=== PATIENT | female | born 2000 | race Caucasian/White ===

== ENCOUNTER 2020-04-13 09:29 | Emergency (ER) | payer BC, OTHER ==
--- NOTE | 2020-04-13 09:54 | ERPHSYRPT ---
- History of Present Illness Time Seen by Provider: 04/13/20 09:40 Source: patient, family Exam Limitations: no limitations Patient Subjective Stated Complaint: pt states she walked into a wall and thinks she broke her nose, she states erich nose was bleeding, Triage Nursing Assessment: pt alert, arrived per wc , resp easy, has mask, skin w/d/p.has slight swelling to nose, she states hard to breath Physician History: This is a 19-year-old white female who states 1 to 2 hours prior to the evaluation of the emergency department, the patient turned a corner and ran into a wall. She said this was accidental. She had brief loss of consciousness per her report and there was brief immediate and significant nosebleed but this had stopped prior to her evaluation in the emergency department. Occurred: this morning, hours ago (1-2) Severity: mild Head Injury Location: frontal Method of Injury: direct blow (Ran into a wall accidentally per patient report) Loss of Consciousness: brief (seconds) Associated Symptoms: other (Brief but significant nosebleed) Allergies/Adverse Reactions: No Known Drug Allergies Allergy (Unverified 04/13/20 09:42) Home Medications: No Reportable Medications [No Reported Medications] 04/13/20 [History] Hx Influenza Vaccination/Date Given: No Hx Pneumococcal Vaccination/Date Given: No Immunizations Up to Date: Yes Travel Risk - International Travel Have you traveled outside of the country in past 3 weeks: No - Coronavirus Screening Are you exhibiting any of the following symptoms?: No Close contact with a COVID-19 positive Pt in past 14-21 Days: No - Review of Systems Constitutional: No Symptoms Eyes: No Symptoms Ears, Nose, & Throat: No Symptoms Respiratory: No Symptoms Cardiac: No Symptoms Abdominal/Gastrointestinal: No Symptoms Genitourinary Symptoms: No Symptoms Musculoskeletal: No Symptoms Skin: No Symptoms Neurological: No Symptoms Psychological: No Symptoms Endocrine: No Symptoms Hematologic/Lymphatic: No Symptoms Immunological/Allergic: No Symptoms All Other Systems: Reviewed and Negative - Past Medical History Pertinent Past Medical History: No Neurological History: No Pertinent History ENT History: No Pertinent History Cardiac History: No Pertinent History Respiratory History: No Pertinent History Endocrine Medical History: No Pertinent History Musculoskeletal History: No Pertinent History GI Medical History: No Pertinent History History: No Pertinent History Psycho-Social History: No Pertinent History Female Reproductive Disorders: No Pertinent History - Past Surgical History Past Surgical History: No Neuro Surgical History: No Pertinent History Cardiac: No Pertinent History Respiratory: No Pertinent History Gastrointestinal: No Pertinent History Genitourinary: No Pertinent History Musculoskeletal: No Pertinent History Female Surgical History: No Pertinent History - Social History Smoking Status: Current every day smoker Exposure to second hand smoke: Yes Drug Use: none Patient Lives Alone: Yes - Female History Hx Last Menstrual Period: yesterday Hx Now: No - Nursing Vital Signs Nursing Vital Signs: Initial Vital Signs Temperature 98.0 F 04/13/20 09:34 Pulse Rate 102 H 04/13/20 09:34 Respiratory Rate 18 04/13/20 09:34 Blood Pressure 115/72 04/13/20 09:34 O2 Sat by Pulse Oximetry 100 04/13/20 09:34 Pain Scale Pain Intensity 5 - [place] Coma Score Best Eye Response ([place]): (4) open spontaneously Best Verbal Response ([place]): (5) oriented Best Motor Response ([place]): (6) obeys commands [place] Total: 15 - Physical Exam General Appearance: no apparent distress, alert, anxiety Head Injury: ecchymosis (Mild with mild swelling nasal bridge), swelling (Mild nasal bridge) Eye Exam: bilateral eye: normal inspection, PERRL, EOMI ENT Exam: airway nml, other (Mild nasal bridge swelling and ecchymosis. No epistaxis. No intranasal blood clots present) Neck Exam: supple, trachea midline, full range of motion, normal alignment, normal inspection Cardiovascular/Respiratory Exam: chest non-tender Gastrointestinal/Abdominal Exam: non tender Pelvic Exam: not done Rectal Exam: not done Back Exam: normal inspection, normal range of motion, No CVA tenderness, No vertebral tenderness Extremity Exam: non-tender, normal range of motion, normal inspection Mental Status Exam: alert, oriented x 3, cooperative night shift Exam: normal hearing, normal speech, PERRL Coordination/Gait Exam: normal finger to nose, normal gait, normal cerebellar function Motor/Sensory Exam: no motor deficit, no sensory deficit Skin Exam: normal color, warm, dry Lymphatic Exam: No adenopathy SpO2 Interpretation: normal SpO2: 100 O2 Delivery: Room Air - Course Nursing assessment & vital signs reviewed: Yes Ordered Tests: Active Orders 24 hr Category Date Time Status FACIAL BONES WO CONTRAST [CT] Stat Exams 04/13/20 09:57 Completed HEAD WITHOUT CONTRAST [CT] Stat Exams 04/13/20 09:57 Completed - Progress Progress: pain not gone completely, re-examined Progress Note: 04/13/20 11:03 CAT scan of the head shows no acute intracranial abnormalities CAT scan of the facial bones shows a nondisplaced nasal bone fracture. - Departure Departure Disposition: Home Clinical Impression: Nasal bone fracture Condition: Stable Critical Care Time: No Referrals: YRN WHITTAKER MD [NON-STAFF PHY W/O PRIVILEGES] - Additional Instructions: Ice pack to area 3 times a day for the next 48 hours. Use Tylenol ibuprofen for pain. Follow-up with your primary care physician on an as-needed basis.
--- NOTE | 2020-04-13 10:43 | XRAY ---
Indication: Epistaxis following head injury. Multiple contiguous axial images obtained through the head without contrast. Comparison: None Normal appearing brain parenchyma, ventricles, and bony calvarium. Visualized paranasal sinuses and mastoid air cells are clear. Impression: Normal CT head without contrast exam.
--- NOTE | 2020-04-13 10:45 | XRAY ---
Indication: Epistaxis following head injury. Multiple contiguous axial images obtained through the facial bones. Sagittal and coronal reformatted images obtained. Comparison: None Tiny nondisplaced left nasal bone fracture. No other acute fracture, suspicious bony lesions, or radiopaque foreign body. Orbits including roof, juares, and floors intact. Paranasal sinuses and nasal passages are clear. Minimal nasal septal deviation. Visualized noncontrasted soft tissues unremarkable. CT head reported separately. Impression: Nondisplaced left nasal bone fracture.
[2020-04-13 11:13] VITALS: BP 107/70; PULSE 104; O2SAT 96
== END 2020-04-13 11:14 | disposition home or self-care (01) ==
LOC: ED 09:29
DX: S02.2XXA Fracture of nasal bones, initial encounter for closed fracture (principal); W22.01XA Walked into wall, initial encounter
CPT/HCPCS: 70450; 70486; 99283

== ENCOUNTER 2020-09-18 23:25 | Emergency (ER) | payer OTHER ==
[2020-09-18] MEDS ORDERED: Sodium Chloride 0.9% 1000 ML 1,000 ML IV STA (23:45)
--- NOTE | 2020-09-18 23:53 | ERPHSYRPT ---
- History of Present Illness Time Seen by Provider: 09/18/20 23:37 Source: patient Exam Limitations: no limitations Physician History: 20 years old 1 para 0 at almost 4-6 weeks gestation per LMP presented in the ER with 4 days history of intermittent pelvic pressure/tightness/cramping with radiation to bilateral lower quadrants Keysha to severe intensity without any significant aggravating or relieving factors. Patient also reports she had a light spotting before she started to have this pain. Denies any urinary symptoms. No associated nausea or vomiting. Patient has a test confirmed that primary care office. Timing/Duration: day(s) (4), intermittent, gradual onset, worse Activites at Onset: rest Quality: sharpness Onset Location: suprapubic, pelvic pain Pain Radiation: RLQ, LLQ Severity of Pain-Max: severe Severity of Pain-Current: moderate Prior abdominal problems: none Modifying Factors: Improves With: nothing Associated Symptoms: denies symptoms Allergies/Adverse Reactions: No Known Drug Allergies Allergy (Unverified 09/19/20 00:04) Home Medications: No Reportable Medications [No Reported Medications] 04/13/20 [History] Hx Influenza Vaccination/Date Given: No Hx Pneumococcal Vaccination/Date Given: No - Review of Systems Constitutional: No Symptoms Eyes: No Symptoms Ears, Nose, & Throat: No Symptoms Respiratory: No Symptoms Cardiac: No Symptoms Abdominal/Gastrointestinal: Abdominal Pain Genitourinary Symptoms: , Vaginal Bleeding Musculoskeletal: No Symptoms Skin: No Symptoms Neurological: No Symptoms Psychological: No Symptoms Endocrine: No Symptoms Hematologic/Lymphatic: No Symptoms Immunological/Allergic: No Symptoms - Past Medical History Pertinent Past Medical History: No Neurological History: No Pertinent History ENT History: No Pertinent History Cardiac History: No Pertinent History Respiratory History: No Pertinent History Endocrine Medical History: No Pertinent History Musculoskeletal History: No Pertinent History GI Medical History: No Pertinent History History: No Pertinent History Psycho-Social History: No Pertinent History Female Reproductive Disorders: No Pertinent History - Past Surgical History Past Surgical History: No Neuro Surgical History: No Pertinent History Cardiac: No Pertinent History Respiratory: No Pertinent History Gastrointestinal: No Pertinent History Genitourinary: No Pertinent History Musculoskeletal: No Pertinent History Female Surgical History: No Pertinent History - Social History Smoking Status: Current every day smoker Exposure to second hand smoke: Yes Drug Use: none Patient Lives Alone: Yes - Nursing Vital Signs Nursing Vital Signs: Initial Vital Signs Temperature 99.2 F 09/18/20 23:43 Pulse Rate 71 09/18/20 23:43 Respiratory Rate 20 09/18/20 23:43 Blood Pressure 118/75 09/18/20 23:43 O2 Sat by Pulse Oximetry 100 09/18/20 23:43 Pain Scale Pain Intensity 3 - Physical Exam General Appearance: no apparent distress Eye Exam: PERRL/EOMI Ears, Nose, Throat Exam: normal ENT inspection Neck Exam: normal inspection, non-tender, supple, full range of motion Respiratory Exam: normal breath sounds, lungs clear Cardiovascular Exam: regular rate/rhythm, normal heart sounds Gastrointestinal/Abdomen Exam: soft, normal bowel sounds, tenderness (Supra pubic), No guarding Back Exam: normal inspection, normal range of motion, No CVA tenderness Extremity Exam: normal inspection, normal range of motion, pelvis stable Neurologic Exam: alert, oriented x 3, cooperative Skin Exam: normal color SpO2 Interpretation: normal O2 Delivery: Room Air - Radiology Ultrasound Exam OB Ultrasound: Other (Marcell report showed IUP eason with no ectopic.) Ordered Tests: Medication Summary Discontinued Medications Generic Name Dose Route Start Last Admin Trade Name Freq PRN Reason Stop Dose Admin Sodium Chloride 1,000 mls @ 999 mls/hr 09/18/20 23:45 09/19/20 00:07 Sodium Chloride 0.9% 1000 Ml IV 09/19/20 00:45 999 mls/hr .Q1H1M STA Administration Sodium Chloride Confirm 09/19/20 00:07 Sodium Chloride 0.9% 1000 Ml Administered 09/19/20 00:08 Dose 1,000 mls @ ud .[facility]TE .[facility] Lab/Rad Data: Laboratory Result Diagrams 09/18/20 00:04 09/18/20 00:04 Laboratory Results 09/19/20 09/19/20 09/18/20 Range/Units 00:04 00:04 00:15 WBC (4.0-10.5) K/mm3 RBC (4.1-5.4) M/mm3 Hgb (12.0-16.0) gm/dl Hct (35-47) % MCV (78-100) fl MCH (26-32) pg MCHC (32-36) g/dl RDW (11.5-14.0) % Plt Count (150-450) K/mm3 MPV (7.5-11.0) fl Gran % (36.0-66.0) % Eos # (Auto) (0-0.5) Absolute Lymphs (auto) (1.0-4.6) Absolute Monos (auto) (0.0-1.3) Lymphocytes % (24.0-44.0) % Monocytes % (0.0-12.0) % Eosinophils % (0.00-5.0) % Basophils % (0.0-0.4) % Absolute Granulocytes (1.4-6.9) Basophils # (0-0.4) Sodium (137-145) mmol/L Potassium (3.5-5.1) mmol/L Chloride (98-107) mmol/L Carbon Dioxide (22-30) mmol/L Anion Gap (5-15) MEQ/L BUN (7-17) mg/dL Creatinine (0.52-1.04) mg/dL Estimated GFR ML/MIN Glucose (74-106) mg/dL Calcium (8.4-10.2) mg/dL Total Bilirubin (0.2-1.3) mg/dL AST (14-36) U/L ALT (0-35) U/L Alkaline Phosphatase (38-126) U/L Serum Total Protein (6.3-8.2) g/dL Albumin (3.5-5.0) g/dL Beta HCG, Quant mIU/ml Urine Color YELLOW (YELLOW) Urine Appearance CLOUDY (CLEAR) Urine pH 7.0 (5-6) Ur Specific [place] 1.017 (1.005-1.025) Urine Protein NEGATIVE (Negative) Urine Ketones NEGATIVE (NEGATIVE) Urine Blood NEGATIVE (0-5) Ke/ul Urine Nitrite NEGATIVE (NEGATIVE) Urine Bilirubin NEGATIVE (NEGATIVE) Urine Urobilinogen NEGATIVE (0-1) mg/dL Ur Leukocyte Esterase NEGATIVE (NEGATIVE) Urine WBC (Auto) NONE (0-5) /HPF Urine RBC (Auto) NONE (0-2) /HPF U Epithel Cells (Auto) FEW (FEW) /HPF Urine Bacteria (Auto) NONE (NEGATIVE) /HPF Amorphous Crystals FEW (NEGATIVE) /HPF Urine Mucus (Auto) SLIGHT (NEGATIVE) /HPF Urine Culture Reflexed NO (NO) Urine Glucose NEGATIVE (NEGATIVE) mg/dL Urine HCG, Qual POSITIVE (Negative) ABO Group A Rh Factor POSITIVE Antibody Screen NEGATIVE (NEGATIVE) 09/18/20 09/18/20 Range/Units 00:04 00:04 WBC 8.0 (4.0-10.5) K/mm3 RBC 3.89 L (4.1-5.4) M/mm3 Hgb 12.3 (12.0-16.0) gm/dl Hct 37.1 (35-47) % MCV 95.4 (78-100) fl MCH 31.6 (26-32) pg MCHC 33.2 (32-36) g/dl RDW 12.3 (11.5-14.0) % Plt Count 229 (150-450) K/mm3 MPV 10.2 (7.5-11.0) fl Gran % 68.2 H (36.0-66.0) % Eos # (Auto) 0.11 (0-0.5) Absolute Lymphs (auto) 1.78 (1.0-4.6) Absolute Monos (auto) 0.62 (0.0-1.3) Lymphocytes % 22.3 L (24.0-44.0) % Monocytes % 7.8 (0.0-12.0) % Eosinophils % 1.4 (0.00-5.0) % Basophils % 0.3 (0.0-0.4) % Absolute Granulocytes 5.47 (1.4-6.9) Basophils # 0.02 (0-0.4) Sodium 138 (137-145) mmol/L Potassium 3.7 (3.5-5.1) mmol/L Chloride 105 (98-107) mmol/L Carbon Dioxide 26 (22-30) mmol/L Anion Gap 9.8 (5-15) MEQ/L BUN 13 (7-17) mg/dL Creatinine 0.55 (0.52-1.04) mg/dL Estimated GFR > 60.0 ML/MIN Glucose 86 (74-106) mg/dL Calcium 9.4 (8.4-10.2) mg/dL Total Bilirubin 0.20 (0.2-1.3) mg/dL AST 22 (14-36) U/L ALT 15 (0-35) U/L Alkaline Phosphatase 38 (38-126) U/L Serum Total Protein 7.4 (6.3-8.2) g/dL Albumin 4.4 (3.5-5.0) g/dL Beta HCG, Quant 38134 mIU/ml Urine Color (YELLOW) Urine Appearance (CLEAR) Urine pH (5-6) Ur Specific [place] (1.005-1.025) Urine Protein (Negative) Urine Ketones (NEGATIVE) Urine Blood (0-5) Ke/ul Urine Nitrite (NEGATIVE) Urine Bilirubin (NEGATIVE) Urine Urobilinogen (0-1) mg/dL Ur Leukocyte Esterase (NEGATIVE) Urine WBC (Auto) (0-5) /HPF Urine RBC (Auto) (0-2) /HPF U Epithel Cells (Auto) (FEW) /HPF Urine Bacteria (Auto) (NEGATIVE) /HPF Amorphous Crystals (NEGATIVE) /HPF Urine Mucus (Auto) (NEGATIVE) /HPF Urine Culture Reflexed (NO) Urine Glucose (NEGATIVE) mg/dL Urine HCG, Qual (Negative) ABO Group Rh Factor Antibody Screen (NEGATIVE) - Progress Progress: improved Air Movement: good Progress Note: She is given fluid bolus. Offered pain medication which she refused. Baseline work-up is grossly negative. I have obtained ultrasound which showed single IUP but too early in the but ruled out ectopic. I have also obtained ultrasound right lower quadrant which could not visualized appendix. She does not have any guarding or rebound tenderness. More pain in the suprapubic area. I believe patient has early related cramping. Her white count is normal and pain is been going on for the last 4 days which I resume that is related and less likely acute appendicitis. Patient is advised to follow-up with her OB for serial monitoring of beta-hCG. Do not think she needs any further work-up in the ER. Discussed signs symptoms of worsening needing return to ER which patient seems understanding. Blood Culture(s) Obtained: No Antibiotics given: No Counseled pt/family regarding: lab results, diagnosis, need for follow-up, rad results - Departure Departure Disposition: Home Clinical Impression: Pelvic pain affecting in first trimester, antepartum Condition: Stable Critical Care Time: No Referrals: LAURENCE OLIVARES MD [Primary Care Provider] - LEANDRO REN DO [ACTIVE STAFF] - (Call tomorrow for reevaluation.) Instructions: Bleeding With (DC) Additional Instructions: Drink plenty of fluids. Pelvic rest. Continue with vitamins. Follow- up with OB for reevaluation. Return to ER for worsening pain, vaginal bleeding/discharge.
[2020-09-19] MEDS ORDERED: Sodium Chloride 0.9% 1000 ML 1,000 ML ONE (00:07)
[2020-09-19 00:41] LABS: Absolute Neutrophil Ct (ANC) 5.47 (1.4-6.9); BASOPHIL % 0.3 % (0.0-0.4); Basophil (Absolute #) 0.02 (0-0.4); Eosinophil % 1.4 % (0.00-5.0); Eosinophil (Absolute #) 0.11 (0-0.5); Hematocrit 37.1 % (35-47); Hemoglobin 12.3 gm/dl (12.0-16.0); Lymphocyte (Absolute #) 1.78 (1.0-4.6); Lymphocytes % 22.3 % (24.0-44.0); Mean Cell Volume 95.4 fl (78-100); Mean Corpuscular Hemoglobin 31.6 pg (26-32); Mean Corpuscular Hgb Concent. 33.2 g/dl (32-36); Mean Platelet Volume 10.2 fl (7.5-11.0); Monocyte (Absolute #) 0.62 (0.0-1.3); Monocytes % 7.8 % (0.0-12.0); Neutrophil % 68.2 % (36.0-66.0); Platelet Count 229 K/mm3 (150-450); Red Blood Count 3.89 M/mm3 (4.1-5.4); Red Cell Distribution Width 12.3 % (11.5-14.0)
[2020-09-19 01:06] LABS: ALBUMIN 4.4 g/dL (3.5-5.0); ALKALINE PHOSPHATASE 38 U/L (38-126); ANION GAP 9.8 MEQ/L (5-15); BLOOD UREA NITROGEN 13 mg/dL (7-17); CHLORIDE 105 mmol/L (98-107); Calcium 9.4 mg/dL (8.4-10.2); Carbon Dioxide 26 mmol/L (22-30); Creatinine 1 0.55 mg/dL (0.52-1.04); EST GLOMERULAR FILTRATION RATE > 60.0 ML/MIN; Glucose 86 mg/dL (74-106); Potassium 3.7 mmol/L (3.5-5.1); SGOT/AST 22 U/L (14-36); SGPT/ALT 15 U/L (0-35); SODIUM 138 mmol/L (137-145); Total Protein 7.4 g/dL (6.3-8.2)
[2020-09-19 01:19] LABS: Amourphous Crystal FEW /HPF (NEGATIVE); Appearance CLOUDY (CLEAR); Bilirubin NEGATIVE (NEGATIVE); Blood NEGATIVE Ery/ul (0-5); Epithelial Cells FEW /HPF (FEW); Glucose NEGATIVE (NEGATIVE); Ketones NEGATIVE (NEGATIVE); Leukocyte Esterase NEGATIVE (NEGATIVE); Mucus SLIGHT /HPF (NEGATIVE); Nitrite NEGATIVE (NEGATIVE); Protein,Urine Dip NEGATIVE (Negative); Specific Gravity 1.017 (1.005-1.025); Urobilinogen NEGATIVE mg/dL (0-1)
[2020-09-19 01:30] LABS: HCG, Quantitative (Inhouse) 16357 mIU/ml
[2020-09-19 01:50] VITALS: BP 103/55; PULSE 103; O2SAT 96
[2020-09-19 02:32] LABS: ABO TYPING A; Antibody Screen NEGATIVE (NEGATIVE); RH TYPING POSITIVE
--- NOTE | 2020-09-19 08:37 | XRAY ---
Indication: Right lower quadrant pain. Two-dimensional targeted ultrasound of the right lower quadrant performed. Comparison: None Appendix not visualized. No suspicious solid/cystic mass or free fluid. Comment: Preliminary report was given.
--- NOTE | 2020-09-19 08:42 | XRAY ---
Indication: Right lower quadrant pain. Two-dimensional transabdominal early OB ultrasound performed. Comparison: None There is a single intrauterine gestational sac with mean sac diameter 1.40 cm corresponding to 5 weeks 4 days. Single yolk sac but no pole/heart tones. Left ovary demonstrates a 3 cm corpus luteal cyst. Right ovary sonographically unremarkable. Impression: Single intrauterine gestational sac measuring 5 weeks 4 days. No pole/heart tones presumed early . Correlate with serial beta hCG and follow-up sonogram regarding viability. Comment: Preliminary report was given.
== END 2020-09-19 01:50 | disposition home or self-care (01) ==
LOC: ED 23:25
DX: R10.2 Pelvic and perineal pain (principal); Z34.91 Encounter for supervision of normal pregnancy, unspecified, first trimester; N93.9 Abnormal uterine and vaginal bleeding, unspecified
CPT/HCPCS: 36000; 36415; 76705; 76801; 80053; 81001; 84702; 84703; 85025; 86850; 86900; 86901; 96360; 99284

== ENCOUNTER 2021-10-12 15:58 | Emergency (ER) | payer OTHER ==
--- NOTE | 2021-10-12 16:07 | ERPHSYRPT ---
- History of Present Illness Time Seen by Provider: 10/12/21 16:07 Source: patient Exam Limitations: no limitations Physician History: This is a 21-year-old white female who is under a lot of stress at this time, presents with concern of high blood pressure and shakiness. Patient intermittently takes Lexapro for her anxiety issues. However it makes her feel funny and so she does not take it as she should. Patient states she has a lot of stress at home with her child and and lack of funds for bills. She currently denies chest pain. She has no shortness of breath. She has no nausea vomiting or diarrhea. She did have brief visual changes during the peak of her anxiety episode earlier today. That has since resolved. Patient has an appointment to see [facility] therapist as an outpatient basis tomorrow. She is not suicidal she is not homicidal. Severity: moderate Associated Symptoms: denies symptoms Allergies/Adverse Reactions: No Known Drug Allergies Allergy (Verified 10/12/21 16:37) Home Medications: Escitalopram Oxalate 10 mg [Lexapro 10 MG] 1 ea DAILY 10/12/21 [History] Hx Tetanus, Diphtheria Vaccination/Date Given: Yes Hx Influenza Vaccination/Date Given: No Hx Pneumococcal Vaccination/Date Given: No Travel Risk - International Travel Have you traveled outside of the country in past 3 weeks: No - Coronavirus Screening Are you exhibiting any of the following symptoms?: No Close contact with a COVID-19 positive Pt in past 14-21 Days: No - Review of Systems Constitutional: No Symptoms Eyes: No Symptoms Ears, Nose, & Throat: No Symptoms Respiratory: No Symptoms Cardiac: No Symptoms Abdominal/Gastrointestinal: No Symptoms Genitourinary Symptoms: No Symptoms Musculoskeletal: No Symptoms Skin: No Symptoms Psychological: Anxiety Endocrine: No Symptoms Hematologic/Lymphatic: No Symptoms Immunological/Allergic: No Symptoms All Other Systems: Reviewed and Negative - Past Medical History Pertinent Past Medical History: No Neurological History: No Pertinent History ENT History: No Pertinent History Cardiac History: No Pertinent History Respiratory History: No Pertinent History Endocrine Medical History: No Pertinent History Musculoskeletal History: No Pertinent History GI Medical History: No Pertinent History History: No Pertinent History Psycho-Social History: No Pertinent History Female Reproductive Disorders: No Pertinent History - Past Surgical History Past Surgical History: No Neuro Surgical History: No Pertinent History Cardiac: No Pertinent History Respiratory: No Pertinent History Gastrointestinal: No Pertinent History Genitourinary: No Pertinent History Musculoskeletal: No Pertinent History Female Surgical History: No Pertinent History - Social History Smoking Status: Current every day smoker Exposure to second hand smoke: Yes Drug Use: none Patient Lives Alone: Yes - Nursing Vital Signs Nursing Vital Signs: Initial Vital Signs Temperature 97.2 F 10/12/21 16:27 Pulse Rate 86 10/12/21 16:27 Respiratory Rate 18 10/12/21 16:27 Blood Pressure 134/87 10/12/21 16:27 O2 Sat by Pulse Oximetry 100 10/12/21 16:27 Pain Scale Pain Intensity 0 - Physical Exam General Appearance: no apparent distress, alert, anxiety Eye Exam: PERRL/EOMI, eyes nml inspection Ears, Nose, Throat Exam: normal ENT inspection, TM abnormal (L) Neck Exam: normal inspection, non-tender, supple, full range of motion Respiratory Exam: normal breath sounds, lungs clear, airway intact, No chest tenderness, No respiratory distress Cardiovascular Exam: regular rate/rhythm, normal heart sounds, normal peripheral pulses Gastrointestinal/Abdomen Exam: soft, normal bowel sounds, No tenderness Ordered Tests: Active Orders 24 hr Category Date Time Status EKG-ER Only STAT Care 10/12/21 17:04 Active CBC W DIFF Stat Lab 10/12/21 17:20 Completed CMP Stat Lab 10/12/21 17:20 Completed HCG,QUALITATIVE URINE Stat Lab 10/12/21 17:00 Completed HCG,QUALITATIVE URINE Stat Lab 10/12/21 17:22 Completed UA W/RFX UR CULTURE Stat Lab 10/12/21 17:00 Completed Urine Triage Profile Stat Lab 10/12/21 17:00 Completed Lab/Rad Data: Laboratory Result Diagrams 10/12/21 17:20 10/12/21 17:20 Laboratory Results 10/12/21 10/12/21 10/12/21 Range/Units 17:22 17:20 17:20 WBC 5.6 (4.0-10.5) K/mm3 RBC 4.02 L (4.1-5.4) M/mm3 Hgb 11.7 L (12.0-16.0) gm/dl Hct 36.7 (35-47) % MCV 91.3 (78-100) fl MCH 29.1 (26-32) pg MCHC 31.9 L (32-36) g/dl RDW 12.8 (11.5-14.0) % Plt Count 235 (150-450) K/mm3 MPV 10.5 (7.5-11.0) fl Gran % 65.7 (36.0-66.0) % Eos # (Auto) 0.04 (0-0.5) Absolute Lymphs (auto) 1.46 (1.0-4.6) Absolute Monos (auto) 0.40 (0.0-1.3) Lymphocytes % 26.2 (24.0-44.0) % Monocytes % 7.2 (0.0-12.0) % Eosinophils % 0.7 (0.00-5.0) % Basophils % 0.2 (0.0-0.4) % Absolute Granulocytes 3.67 (1.4-6.9) Basophils # 0.01 (0-0.4) Sodium 137 (137-145) mmol/L Potassium 3.8 (3.5-5.1) mmol/L Chloride 104 (98-107) mmol/L Carbon Dioxide 26 (22-30) mmol/L Anion Gap 11.3 (5-15) MEQ/L BUN 12 (7-17) mg/dL Creatinine 0.57 (0.52-1.04) mg/dL Estimated GFR > 60.0 ML/MIN Glucose 91 (74-106) mg/dL Calcium 9.1 (8.4-10.2) mg/dL Total Bilirubin 0.40 (0.2-1.3) mg/dL AST 24 (14-36) U/L ALT 15 (0-35) U/L Alkaline Phosphatase 47 (38-126) U/L Serum Total Protein 7.1 (6.3-8.2) g/dL Albumin 4.4 (3.5-5.0) g/dL Urine Color (YELLOW) Urine Appearance (CLEAR) Urine pH (5-6) Ur Specific [place] (1.005-1.025) Urine Protein (Negative) Urine Ketones (NEGATIVE) Urine Blood (0-5) Ke/ul Urine Nitrite (NEGATIVE) Urine Bilirubin (NEGATIVE) Urine Urobilinogen (0-1) mg/dL Ur Leukocyte Esterase (NEGATIVE) Urine WBC (Auto) (0-5) /HPF Urine RBC (Auto) (0-2) /HPF U Epithel Cells (Auto) (FEW) /HPF Urine Bacteria (Auto) (NEGATIVE) /HPF Urine Mucus (Auto) (NEGATIVE) /HPF Urine Culture Reflexed (NO) Urine Glucose (NEGATIVE) mg/dL Urine HCG, Qual NEGATIVE (Negative) Urine Opiates Level (NEGATIVE) Ur Methadone (NEGATIVE) Urine Barbiturates (NEGATIVE) Ur Phencyclidine (PCP) (NEGATIVE) Urine Amphetamine (NEGATIVE) U Benzodiazepine Level (NEGATIVE) Urine Cocaine (NEGATIVE) Urine Marijuana (THC) (NEGATIVE) 10/12/21 10/12/21 10/12/21 Range/Units 17:00 17:00 17:00 WBC (4.0-10.5) K/mm3 RBC (4.1-5.4) M/mm3 Hgb (12.0-16.0) gm/dl Hct (35-47) % MCV (78-100) fl MCH (26-32) pg MCHC (32-36) g/dl RDW (11.5-14.0) % Plt Count (150-450) K/mm3 MPV (7.5-11.0) fl Gran % (36.0-66.0) % Eos # (Auto) (0-0.5) Absolute Lymphs (auto) (1.0-4.6) Absolute Monos (auto) (0.0-1.3) Lymphocytes % (24.0-44.0) % Monocytes % (0.0-12.0) % Eosinophils % (0.00-5.0) % Basophils % (0.0-0.4) % Absolute Granulocytes (1.4-6.9) Basophils # (0-0.4) Sodium (137-145) mmol/L Potassium (3.5-5.1) mmol/L Chloride (98-107) mmol/L Carbon Dioxide (22-30) mmol/L Anion Gap (5-15) MEQ/L BUN (7-17) mg/dL Creatinine (0.52-1.04) mg/dL Estimated GFR ML/MIN Glucose (74-106) mg/dL Calcium (8.4-10.2) mg/dL Total Bilirubin (0.2-1.3) mg/dL AST (14-36) U/L ALT (0-35) U/L Alkaline Phosphatase (38-126) U/L Serum Total Protein (6.3-8.2) g/dL Albumin (3.5-5.0) g/dL Urine Color STRAW (YELLOW) Urine Appearance SLIGHTLY CLOUDY (CLEAR) Urine pH 7.0 (5-6) Ur Specific [place] 1.006 (1.005-1.025) Urine Protein NEGATIVE (Negative) Urine Ketones NEGATIVE (NEGATIVE) Urine Blood NEGATIVE (0-5) Ke/ul Urine Nitrite NEGATIVE (NEGATIVE) Urine Bilirubin NEGATIVE (NEGATIVE) Urine Urobilinogen NEGATIVE (0-1) mg/dL Ur Leukocyte Esterase NEGATIVE (NEGATIVE) Urine WBC (Auto) NONE (0-5) /HPF Urine RBC (Auto) NONE (0-2) /HPF U Epithel Cells (Auto) RARE (FEW) /HPF Urine Bacteria (Auto) NONE (NEGATIVE) /HPF Urine Mucus (Auto) SLIGHT (NEGATIVE) /HPF Urine Culture Reflexed NO (NO) Urine Glucose NEGATIVE (NEGATIVE) mg/dL Urine HCG, Qual NEGATIVE (Negative) Urine Opiates Level NEGATIVE (NEGATIVE) Ur Methadone NEGATIVE (NEGATIVE) Urine Barbiturates NEGATIVE (NEGATIVE) Ur Phencyclidine (PCP) NEGATIVE (NEGATIVE) Urine Amphetamine NEGATIVE (NEGATIVE) U Benzodiazepine Level NEGATIVE (NEGATIVE) Urine Cocaine NEGATIVE (NEGATIVE) Urine Marijuana (THC) NEGATIVE (NEGATIVE) - Progress Progress: unchanged Progress Note: 10/12/21 18:16 Patient states that she has to leave and does not want to stay to get the results of her laboratory work-up. Patient is leaving AMA. She is aware that I could not give her a diagnosis. She states that she is leaving because she has a 5-month-old at home and there are stressors that she needs to deal with at home and has to leave now. She will sign an AMA form. Patient signed AMA form but left without her discharge paperwork. 10/12/21 18:18 - Departure Departure Disposition: AMA Clinical Impression: Anxiety, Stress Condition: Stable Critical Care Time: No Referrals: ELLIE PICKETT NP [Primary Care Provider] - Follow up/PCP as directed
[2021-10-12 16:28] VITALS: BP 134/87; PULSE 86; O2SAT 100
[2021-10-12 17:19] LABS: Appearance SLIGHTLY CLOUDY (CLEAR); Bilirubin NEGATIVE (NEGATIVE); Blood NEGATIVE Ery/ul (0-5); Epithelial Cells RARE /HPF (FEW); Glucose NEGATIVE (NEGATIVE); Ketones NEGATIVE (NEGATIVE); Leukocyte Esterase NEGATIVE (NEGATIVE); Mucus SLIGHT /HPF (NEGATIVE); Nitrite NEGATIVE (NEGATIVE); Protein,Urine Dip NEGATIVE (Negative); Specific Gravity 1.006 (1.005-1.025); Urobilinogen NEGATIVE mg/dL (0-1)
[2021-10-12 17:41] LABS: Absolute Neutrophil Ct (ANC) 3.67 (1.4-6.9); BASOPHIL % 0.2 % (0.0-0.4); Basophil (Absolute #) 0.01 (0-0.4); Eosinophil % 0.7 % (0.00-5.0); Eosinophil (Absolute #) 0.04 (0-0.5); Hematocrit 36.7 % (35-47); Hemoglobin 11.7 gm/dl (12.0-16.0); Lymphocyte (Absolute #) 1.46 (1.0-4.6); Lymphocytes % 26.2 % (24.0-44.0); Mean Cell Volume 91.3 fl (78-100); Mean Corpuscular Hemoglobin 29.1 pg (26-32); Mean Corpuscular Hgb Concent. 31.9 g/dl (32-36); Mean Platelet Volume 10.5 fl (7.5-11.0); Monocytes % 7.2 % (0.0-12.0); Neutrophil % 65.7 % (36.0-66.0); Platelet Count 235 K/mm3 (150-450); Red Blood Count 4.02 M/mm3 (4.1-5.4); Red Cell Distribution Width 12.8 % (11.5-14.0); White Blood Count 5.6 K/mm3 (4.0-10.5)
[2021-10-12 17:54] LABS: ALBUMIN 4.4 g/dL (3.5-5.0); ALKALINE PHOSPHATASE 47 U/L (38-126); ANION GAP 11.3 MEQ/L (5-15); BLOOD UREA NITROGEN 12 mg/dL (7-17); CHLORIDE 104 mmol/L (98-107); Calcium 9.1 mg/dL (8.4-10.2); Carbon Dioxide 26 mmol/L (22-30); Creatinine 1 0.57 mg/dL (0.52-1.04); EST GLOMERULAR FILTRATION RATE > 60.0 ML/MIN; Glucose 91 mg/dL (74-106); Potassium 3.8 mmol/L (3.5-5.1); SGOT/AST 24 U/L (14-36); SGPT/ALT 15 U/L (0-35); SODIUM 137 mmol/L (137-145); Total Protein 7.1 g/dL (6.3-8.2)
[2021-10-12 18:05] LABS: Amphetamine,Urine NEGATIVE (NEGATIVE); Barbiturate,Urine NEGATIVE (NEGATIVE); Benzodiazepine,Urine NEGATIVE (NEGATIVE); Cocaine,Urine NEGATIVE (NEGATIVE); Methadone,Urine NEGATIVE (NEGATIVE); Opiate,Urine NEGATIVE (NEGATIVE); PCP,Urine NEGATIVE (NEGATIVE); THC,Urine NEGATIVE (NEGATIVE)
== END 2021-10-12 18:21 | disposition left against medical advice (07) ==
LOC: ED 15:58
DX: F41.9 Anxiety disorder, unspecified (principal); Z73.3 Stress, not elsewhere classified; Z59.6 Low income; Z72.0 Tobacco use
CPT/HCPCS: 36415; 80053; 80307; 81001; 84703; 85025; 99283

== ENCOUNTER 2021-10-26 19:54 | Emergency (ER) | payer OTHER ==
--- NOTE | 2021-10-26 20:07 | ERPHSYRPT ---
- History of Present Illness Time Seen by Provider: 10/26/21 20:06 Source: patient Exam Limitations: no limitations Physician History: This is a 21-year-old white female who has complaint of vaginal bleeding and lower abdominal cramping. Patient is no more than 2 weeks . On 10/12/2021 she had a negative test here in the emergency department for evaluation of a different issue. Since the patient has taken several tests which have been positive. Today she started to have some lower abdominal cramping and significant vaginal bleeding that she is concerned about. She denies chest pain. She denies shortness of breath. She h as no nausea vomiting or diarrhea. Timing/Duration: today Activites at Onset: none Quality: cramping Onset Location: suprapubic Pain Radiation: none Severity of Pain-Max: mild Severity of Pain-Current: mild Sexual intercourse history: single partner, unprotected intercourse Modifying Factors: Improves With: nothing Associated Symptoms: abdominal pain (Suprapubic cramping), vaginal discharge Allergies/Adverse Reactions: No Known Drug Allergies Allergy (Verified 10/26/21 20:19) Home Medications: Vits96/Iron Fum/Folic [ Tablet] 1 tab PO DAILY 10/26/21 [History] Hx Tetanus, Diphtheria Vaccination/Date Given: Yes Hx Influenza Vaccination/Date Given: No Hx Pneumococcal Vaccination/Date Given: No Travel Risk - International Travel Have you traveled outside of the country in past 3 weeks: No - Coronavirus Screening Are you exhibiting any of the following symptoms?: No Close contact with a COVID-19 positive Pt in past 14-21 Days: No - Vaccine Status Have you recieved a Covid-19 vaccination: No - Review of Systems Constitutional: No Symptoms Eyes: No Symptoms Ears, Nose, & Throat: No Symptoms Respiratory: No Symptoms Cardiac: No Symptoms Abdominal/Gastrointestinal: Abdominal Pain (Pubic cramping) Genitourinary Symptoms: Vaginal Bleeding Musculoskeletal: No Symptoms Skin: Skin Lesions Neurological: No Symptoms Psychological: No Symptoms Endocrine: No Symptoms Hematologic/Lymphatic: No Symptoms Immunological/Allergic: No Symptoms All Other Systems: Reviewed and Negative - Past Medical History Pertinent Past Medical History: No Neurological History: No Pertinent History ENT History: No Pertinent History Cardiac History: No Pertinent History Respiratory History: No Pertinent History Endocrine Medical History: No Pertinent History Musculoskeletal History: No Pertinent History GI Medical History: No Pertinent History History: No Pertinent History Psycho-Social History: No Pertinent History Female Reproductive Disorders: No Pertinent History - Past Surgical History Past Surgical History: No Neuro Surgical History: No Pertinent History Cardiac: No Pertinent History Respiratory: No Pertinent History Gastrointestinal: No Pertinent History Genitourinary: No Pertinent History Musculoskeletal: No Pertinent History Female Surgical History: No Pertinent History - Social History Smoking Status: Current every day smoker Exposure to second hand smoke: Yes Drug Use: none Patient Lives Alone: Yes - Nursing Vital Signs Nursing Vital Signs: Initial Vital Signs Temperature 97.9 F 10/26/21 20:10 Pulse Rate 97 H 10/26/21 20:10 Respiratory Rate 14 10/26/21 20:10 Blood Pressure 116/66 10/26/21 20:10 O2 Sat by Pulse Oximetry 99 10/26/21 20:10 Pain Scale Pain Intensity 4 - Physical Exam General Appearance: no apparent distress, alert, anxiety Eye Exam: PERRL/EOMI, eyes nml inspection Ears, Nose, Throat Exam: normal ENT inspection, moist mucous membranes Neck Exam: normal inspection, non-tender, supple, full range of motion Respiratory Exam: normal breath sounds, lungs clear, airway intact, No chest tenderness, No respiratory distress Cardiovascular Exam: regular rate/rhythm, normal heart sounds, normal peripheral pulses Gastrointestinal/Abdomen Exam: soft, normal bowel sounds, No guarding, No rebound Pelvic Exam: not done Rectal Exam: not done Back Exam: normal inspection Extremity Exam: normal inspection, normal range of motion, pelvis stable Neurologic Exam: alert, oriented x 3, cooperative, 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, normal mood/affect, nml cerebellar function, nml station & gait, sensation nml Skin Exam: normal color, warm, dry Lymphatic Exam: No adenopathy SpO2 Interpretation: normal O2 Delivery: Room Air - Course Nursing assessment & vital signs reviewed: Yes Ordered Tests: Active Orders 24 hr Category Date Time Status IV Insertion STAT Care 10/26/21 20:30 Active CBC W DIFF Stat Lab 10/26/21 20:34 Completed CMP Stat Lab 10/26/21 20:34 Completed CULTURE,URINE Stat Lab 10/26/21 20:32 Received HCG, Quantitative (Inhouse) Stat Lab 10/26/21 20:34 Completed HCG,QUALITATIVE URINE Stat Lab 10/26/21 21:11 Completed UA W/RFX UR CULTURE Stat Lab 10/26/21 20:32 Completed Lab/Rad Data: Laboratory Result Diagrams 10/26/21 20:34 10/26/21 20:34 Laboratory Results 10/26/21 10/26/21 10/26/21 Range/Units 21:11 20:34 20:34 WBC (4.0-10.5) K/mm3 RBC (4.1-5.4) M/mm3 Hgb (12.0-16.0) gm/dl Hct (35-47) % MCV (78-100) fl MCH (26-32) pg MCHC (32-36) g/dl RDW (11.5-14.0) % Plt Count (150-450) K/mm3 MPV (7.5-11.0) fl Gran % (36.0-66.0) % Eos # (Auto) (0-0.5) Absolute Lymphs (auto) (1.0-4.6) Absolute Monos (auto) (0.0-1.3) Lymphocytes % (24.0-44.0) % Monocytes % (0.0-12.0) % Eosinophils % (0.00-5.0) % Basophils % (0.0-0.4) % Absolute Granulocytes (1.4-6.9) Basophils # (0-0.4) Sodium (137-145) mmol/L Potassium (3.5-5.1) mmol/L Chloride (98-107) mmol/L Carbon Dioxide (22-30) mmol/L Anion Gap (5-15) MEQ/L BUN (7-17) mg/dL Creatinine (0.52-1.04) mg/dL Estimated GFR ML/MIN Glucose (74-106) mg/dL Calcium (8.4-10.2) mg/dL Total Bilirubin (0.2-1.3) mg/dL AST (14-36) U/L ALT (0-35) U/L Alkaline Phosphatase (38-126) U/L Serum Total Protein (6.3-8.2) g/dL Albumin (3.5-5.0) g/dL Beta HCG, Quant 8.56 mIU/ml Urine Color (YELLOW) Urine Appearance (CLEAR) Urine pH (5-6) Ur Specific [place] (1.005-1.025) Urine Protein (Negative) Urine Ketones (NEGATIVE) Urine Blood (0-5) Ke/ul Urine Nitrite (NEGATIVE) Urine Bilirubin (NEGATIVE) Urine Urobilinogen (0-1) mg/dL Ur Leukocyte Esterase (NEGATIVE) Urine WBC (Auto) (0-5) /HPF Urine RBC (Auto) (0-2) /HPF U Epithel Cells (Auto) (FEW) /HPF Urine Bacteria (Auto) (NEGATIVE) /HPF Urine Mucus (Auto) (NEGATIVE) /HPF Urine Culture Reflexed (NO) Urine Glucose (NEGATIVE) mg/dL Urine HCG, Qual NEGATIVE (Negative) Rh Factor POSITIVE 10/26/21 10/26/21 10/26/21 Range/Units 20:34 20:34 20:32 WBC 5.1 (4.0-10.5) K/mm3 RBC 3.88 L (4.1-5.4) M/mm3 Hgb 11.5 L (12.0-16.0) gm/dl Hct 35.7 (35-47) % MCV 92.0 (78-100) fl MCH 29.6 (26-32) pg MCHC 32.2 (32-36) g/dl RDW 12.8 (11.5-14.0) % Plt Count 227 (150-450) K/mm3 MPV 10.6 (7.5-11.0) fl Gran % 56.6 (36.0-66.0) % Eos # (Auto) 0.10 (0-0.5) Absolute Lymphs (auto) 1.67 (1.0-4.6) Absolute Monos (auto) 0.43 (0.0-1.3) Lymphocytes % 32.8 (24.0-44.0) % Monocytes % 8.4 (0.0-12.0) % Eosinophils % 2.0 (0.00-5.0) % Basophils % 0.2 (0.0-0.4) % Absolute Granulocytes 2.88 (1.4-6.9) Basophils # 0.01 (0-0.4) Sodium 140 (137-145) mmol/L Potassium 3.8 (3.5-5.1) mmol/L Chloride 107 (98-107) mmol/L Carbon Dioxide 25 (22-30) mmol/L Anion Gap 12.1 (5-15) MEQ/L BUN 10 (7-17) mg/dL Creatinine 0.59 (0.52-1.04) mg/dL Estimated GFR > 60.0 ML/MIN Glucose 86 (74-106) mg/dL Calcium 9.2 (8.4-10.2) mg/dL Total Bilirubin 0.30 (0.2-1.3) mg/dL AST 23 (14-36) U/L ALT 18 (0-35) U/L Alkaline Phosphatase 46 (38-126) U/L Serum Total Protein 6.9 (6.3-8.2) g/dL Albumin 4.3 (3.5-5.0) g/dL Beta HCG, Quant mIU/ml Urine Color YELLOW (YELLOW) Urine Appearance SLIGHTLY CLOUDY (CLEAR) Urine pH 7.0 (5-6) Ur Specific [place] 1.006 (1.005-1.025) Urine Protein NEGATIVE (Negative) Urine Ketones NEGATIVE (NEGATIVE) Urine Blood LARGE (0-5) Ke/ul Urine Nitrite NEGATIVE (NEGATIVE) Urine Bilirubin NEGATIVE (NEGATIVE) Urine Urobilinogen NEGATIVE (0-1) mg/dL Ur Leukocyte Esterase TRACE (NEGATIVE) Urine WBC (Auto) 6-10 (0-5) /HPF Urine RBC (Auto) 6-10 (0-2) /HPF U Epithel Cells (Auto) RARE (FEW) /HPF Urine Bacteria (Auto) RARE (NEGATIVE) /HPF Urine Mucus (Auto) SLIGHT (NEGATIVE) /HPF Urine Culture Reflexed YES (NO) Urine Glucose NEGATIVE (NEGATIVE) mg/dL Urine HCG, Qual (Negative) Rh Factor - Progress Progress: unchanged Air Movement: good Progress Note: 10/26/21 21:23 This patient's test was negative here in the emergency department today. Patient reports several positive tests on and after. She very likely could have had a spontaneous miscarriage. Patient will be discharged to home with instructions to follow-up if needed. Blood Culture(s) Obtained: No Antibiotics given: No Counseled pt/family regarding: lab results, diagnosis, need for follow-up - Departure Departure Disposition: Home Clinical Impression: Vaginal bleeding, Spontaneous miscarriage Condition: Stable Critical Care Time: No Referrals: ELLIE PICKETT NP [Primary Care Provider] - Follow up/PCP as directed Additional Instructions: Drink plenty of fluids. Use Tylenol and ibuprofen for pain control. Return to the emergency department if you are experiencing increased contractions and increased vaginal bleeding.
[2021-10-26 20:13] VITALS: O2SAT 99
[2021-10-26 20:38] LABS: Absolute Neutrophil Ct (ANC) 2.88 (1.4-6.9); Basophil (Absolute #) 0.01 (0-0.4); Hematocrit 35.7 % (35-47); Hemoglobin 11.5 gm/dl (12.0-16.0); Lymphocyte (Absolute #) 1.67 (1.0-4.6); Lymphocytes % 32.8 % (24.0-44.0); Mean Corpuscular Hemoglobin 29.6 pg (26-32); Mean Corpuscular Hgb Concent. 32.2 g/dl (32-36); Mean Platelet Volume 10.6 fl (7.5-11.0); Monocyte (Absolute #) 0.43 (0.0-1.3); Monocytes % 8.4 % (0.0-12.0); Neutrophil % 56.6 % (36.0-66.0); Platelet Count 227 K/mm3 (150-450); Red Blood Count 3.88 M/mm3 (4.1-5.4); Red Cell Distribution Width 12.8 % (11.5-14.0); White Blood Count 5.1 K/mm3 (4.0-10.5)
[2021-10-26 20:42] LABS: Appearance SLIGHTLY CLOUDY (CLEAR); Bacteria RARE /HPF (NEGATIVE); Bilirubin NEGATIVE (NEGATIVE); Blood LARGE Ery/ul (0-5); Epithelial Cells RARE /HPF (FEW); Glucose NEGATIVE (NEGATIVE); Ketones NEGATIVE (NEGATIVE); Leukocyte Esterase TRACE (NEGATIVE); Mucus SLIGHT /HPF (NEGATIVE); Nitrite NEGATIVE (NEGATIVE); Protein,Urine Dip NEGATIVE (Negative); Specific Gravity 1.006 (1.005-1.025); Urobilinogen NEGATIVE mg/dL (0-1)
[2021-10-26 20:47] LABS: ALBUMIN 4.3 g/dL (3.5-5.0); ALKALINE PHOSPHATASE 46 U/L (38-126); ANION GAP 12.1 MEQ/L (5-15); BLOOD UREA NITROGEN 10 mg/dL (7-17); CHLORIDE 107 mmol/L (98-107); Calcium 9.2 mg/dL (8.4-10.2); Carbon Dioxide 25 mmol/L (22-30); Creatinine 1 0.59 mg/dL (0.52-1.04); EST GLOMERULAR FILTRATION RATE > 60.0 ML/MIN; Glucose 86 mg/dL (74-106); Potassium 3.8 mmol/L (3.5-5.1); SGOT/AST 23 U/L (14-36); SGPT/ALT 18 U/L (0-35); SODIUM 140 mmol/L (137-145); Total Protein 6.9 g/dL (6.3-8.2)
[2021-10-26 21:26] VITALS: BP 102/52; PULSE 88
== END 2021-10-26 21:32 | disposition home or self-care (01) ==
LOC: ED 19:54
DX: O03.9 Complete or unspecified spontaneous abortion without complication (principal); N93.9 Abnormal uterine and vaginal bleeding, unspecified; R10.30 Lower abdominal pain, unspecified; Z72.0 Tobacco use
CPT/HCPCS: 36000; 36415; 80053; 81001; 84702; 84703; 85025; 86901; 87086; 99284

== ENCOUNTER 2022-01-27 16:16 | Emergency (ER) | payer OTHER ==
[2022-01-27 17:00] LABS: Appearance CLEAR (CLEAR); Bilirubin NEGATIVE (NEGATIVE); Glucose NEGATIVE (NEGATIVE); Ketones NEGATIVE (NEGATIVE); Specific Gravity 1.025 (1.005-1.025)
[2022-01-27 17:01] LABS: Dipstick done @ ? MAIN LAB; Nitrite NEGATIVE (NEGATIVE); Protein,Urine Dip NEGATIVE (Negative); RBC MODERATE Ery/ul (0-5); Urobilinogen 0.2 mg/dL (0-1)
[2022-01-27 17:03] LABS: Epithelial Cells RARE /HPF (FEW); Mucus SLIGHT /HPF (NEGATIVE)
[2022-01-27 17:04] LABS: Bacteria NONE SEEN /HPF (NEGATIVE); Urine Cultured Indicated? NO
--- NOTE | 2022-01-27 17:06 | ERPHSYRPT ---
- History of Present Illness Source: patient Exam Limitations: no limitations Patient Subjective Stated Complaint: Pt states that her zenon flanks have been hurting for the past week and it also hurts in her middle back and the pain also comes around the zenon sides to her abdomen Triage Nursing Assessment: Pt brought self to the ER, vitals are wnl, rates back pain as 8/10, states that the pain has been a 5/10 all week but got worse today, pt gave 8 months ago and then had a misscarriage in September and then had a positive test last month but then had an unusual menstrual cycle and then she tested negative, pt is not on control and is sexually active, skin is n/w/d, pulses normal, last intake today and last bowel movement today, denies vomiting but has had some nausea, doesn't appear to be in any distress Physician History: 21 yo wf w pain across entire lumbar area w radiation to R/L flank. Pain is 8/10, sharp, and worse w upright position. She has had some nausea but denies V/dysuria/hematuria/fever/melena/hematochezia/injury/vag bleeding and discharge. Timing/Duration: other (1wk) Method of Injury: other (Denies injury) Quality: sharp Back Pain Location: lumbar spine Severity of Pain-Max: severe Severity of Pain-Current: severe Modifying Factors: Improves With: movement (Upright position) Associated Symptoms: nausea, lower back pain, No fever, No chills, No sweating, No urinary incontinence, No loss of bowel control, No constipation, No vomiting, No problems urinating, No light-headedness, No dizziness, No numbness in legs/feet, No weakness, No sensory/motor loss, No tingling in legs/feet, No muscle spasms Previous symptoms: no prior history Allergies/Adverse Reactions: No Known Drug Allergies Allergy (Verified 01/27/22 16:35) Home Medications: No Reportable Medications [No Reported Medications] 01/27/22 [History] Hx Tetanus, Diphtheria Vaccination/Date Given: Yes Hx Influenza Vaccination/Date Given: No Hx Pneumococcal Vaccination/Date Given: No Travel Risk - International Travel Have you traveled outside of the country in past 3 weeks: No - Coronavirus Screening Are you exhibiting any of the following symptoms?: No Close contact with a COVID-19 positive Pt in past 14-21 Days: No - Vaccine Status Have you recieved a Covid-19 vaccination: No - Review of Systems Constitutional: No Symptoms Eyes: No Symptoms Ears, Nose, & Throat: No Symptoms Respiratory: No Symptoms Cardiac: No Symptoms Abdominal/Gastrointestinal: No Symptoms, Nausea Genitourinary Symptoms: No Symptoms, Flank Pain Musculoskeletal: No Symptoms Skin: No Symptoms Neurological: No Symptoms Psychological: No Symptoms Endocrine: No Symptoms Hematologic/Lymphatic: No Symptoms Immunological/Allergic: No Symptoms - Past Medical History Pertinent Past Medical History: Yes Neurological History: No Pertinent History ENT History: No Pertinent History Cardiac History: No Pertinent History Respiratory History: No Pertinent History Endocrine Medical History: No Pertinent History Musculoskeletal History: No Pertinent History GI Medical History: No Pertinent History History: No Pertinent History Psycho-Social History: Other Female Reproductive Disorders: No Pertinent History Other Medical History: OCD - Past Surgical History Past Surgical History: No Neuro Surgical History: No Pertinent History Cardiac: No Pertinent History Respiratory: No Pertinent History Gastrointestinal: No Pertinent History Genitourinary: No Pertinent History Musculoskeletal: No Pertinent History Female Surgical History: No Pertinent History - Social History Smoking Status: Current every day smoker Exposure to second hand smoke: No Drug Use: none Patient Lives Alone: Yes Significant Family History: no pertinent family hx - Female History Hx Last Menstrual Period: unsure Hx Now: No (unsure) - Nursing Vital Signs Nursing Vital Signs: Initial Vital Signs Temperature 97.8 F 01/27/22 16:22 Pulse Rate 85 01/27/22 16:22 Blood Pressure 128/79 01/27/22 16:22 O2 Sat by Pulse Oximetry 100 01/27/22 16:22 Pain Scale Pain Intensity 5 WNL - Physical Exam General Appearance: no apparent distress Eye Exam: PERRL/EOMI, eyes nml inspection Ears, Nose, Throat Exam: normal ENT inspection, TMs normal, pharynx normal, moist mucous membranes Neck Exam: normal inspection, non-tender, supple, full range of motion, No meningismus, No mass, No Brudzinski, No Kernig's Respiratory Exam: normal breath sounds, lungs clear, airway intact Cardiovascular Exam: regular rate/rhythm, normal heart sounds, normal peripheral pulses, capillary refill <2 sec, No murmur Gastrointestinal Exam: soft, normal bowel sounds, No tenderness, No distention Pelvic Exam: not done Back Exam: CVA tenderness (Mild B), vertebral tenderness (Mild) Extremity Exam: normal inspection, normal range of motion Peripheral Pulses: carotid (R): 2+, carotid (L): 2+ Neurologic Exam: alert, oriented x 3, cooperative, 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, normal mood/affect, nml cerebellar function, nml station & gait, sensation nml, No motor deficits, No sensory deficit Skin Exam: normal color, warm, dry Lymphatic Exam: No adenopathy SpO2 Interpretation: normal SpO2: 100 O2 Delivery: Room Air - CT Exams Abdomen/Pelvis CT Interpretation: Tele-radiologist Report (NAD) Ordered Tests: Active Orders 24 hr Category Date Time Status IV Insertion STAT Care 01/27/22 17:34 Completed ABDOMEN AND PELVIS W/0 CONTRAS [CT] Stat Exams 01/27/22 17:12 Completed HCG,QUALITATIVE URINE Stat Lab 01/27/22 16:50 Completed Medication Summary Discontinued Medications Generic Name Dose Route Start Last Admin Trade Name Freq PRN Reason Stop Dose Admin Ketorolac Tromethamine 15 mg 01/27/22 18:35 01/27/22 18:45 Ketorolac Tromethamine 30 Mg/Ml Inj IV 01/27/22 18:36 15 mg STAT ONE Administration Ketorolac Tromethamine Confirm 01/27/22 18:48 Ketorolac Tromethamine 30 Mg/Ml Inj Administered 01/27/22 18:49 Dose 30 mg .ROUTE .STK-MED ONE Lab/Rad Data: Laboratory Results 01/27/22 01/27/22 Range/Units 16:50 16:50 Urinalys Dipstick Clnc MAIN LAB Urine Color YELLOW (YELLOW) Urine Appearance CLEAR (CLEAR) Urine pH 6.0 (5-6) Ur Specific [place] 1.025 (1.005-1.025) POC Urine Protein Conf NEGATIVE (Negative) Urine Ketones NEGATIVE (NEGATIVE) Urine Nitrite NEGATIVE (NEGATIVE) Urine Bilirubin NEGATIVE (NEGATIVE) Urine Urobilinogen 0.2 (0-1) mg/dL Urine Leukocytes NEGATIVE (NEGATIVE) Urine WBC (Auto) 3-5 (0-5) /HPF Urine RBC (Auto) 6-10 (0-2) /HPF U Epithel Cells (Auto) RARE (FEW) /HPF Urine Bacteria (Auto) NONE SEEN (NEGATIVE) /HPF Urine RBC MODERATE (0-5) Ke/ul Urine Mucus (Auto) SLIGHT (NEGATIVE) /HPF Ur Culture Indicated? NO Urine Glucose NEGATIVE (NEGATIVE) mg/dL Urine HCG, Qual NEGATIVE (Negative) - Progress Progress: improved Progress Note: 01/27/22 18:36 15mg IV Toradol 01/27/22 18:44 CT result reviewed w pt Counseled pt/family regarding: lab results, diagnosis, need for follow-up, rad results - Departure Departure Disposition: Home Clinical Impression: Back pain Condition: Stable Critical Care Time: No Referrals: ELLIE PICKETT NP [Primary Care Provider] - Follow up/PCP as directed Instructions: Low Back Pain (DC) Additional Instructions: Motrin/Tylenol for pain Heat to back Follow up with your family MD Return to ER for worsening pain, temperature greater than 100.5, or blood in urine
[2022-01-27 18:09] VITALS: BP 106/69
[2022-01-27] MEDS ORDERED: TORAdol 30 mg Injection IV ONE (18:35)
[2022-01-27] MEDS ORDERED: TORAdol 30 mg Injection ONE (18:48)
[2022-01-27 18:53] VITALS: PULSE 64
--- NOTE | 2022-01-27 20:44 | XRAY ---
Indication: Back pain. Hematuria. Multiple contiguous axial images obtained through the abdomen and pelvis without contrast. Comparison: None Lung bases are clear. Heart not enlarged. Noncontrasted stomach and bowel loops nonobstructed. Normal appendix. Mild diffuse scattered colonic fecal debris throughout. Gallbladder contracted without gallstones. No free fluid/air. Remaining liver, gallbladder, pancreas, spleen, adrenal glands, kidneys, ureters, bladder, uterus, and aorta appear unremarkable for noncontrast exam. Osseous structures intact. No ventral or inguinal hernias. Impression: 1. Mild diffuse fecal stasis. 2. Remaining CT abdomen/pelvis without contrast exam is negative. Comment: Preliminary interpretation made by [facility]. No critical discrepancy.
[2022-01-27 22:34] VITALS: O2SAT 100
== END 2022-01-27 18:57 | disposition home or self-care (01) ==
LOC: ED 16:16
DX: M54.50 Low back pain, unspecified (principal); R11.0 Nausea; Z72.0 Tobacco use
CPT/HCPCS: 36000; 74176; 81015; 84703; 96374; 99284; J1885

== ENCOUNTER 2022-09-05 13:36 | Emergency (ER) | payer OTHER ==
--- NOTE | 2022-09-05 13:45 | ERPHSYRPT ---
- History of Present Illness Time Seen by Provider: 09/05/22 13:45 Source: patient Exam Limitations: no limitations Physician History: This is a 22-year-old white female who is a patient of nurse camille Vidal and was seen at [facility] prior to arrival to the emergency department. She went there because she was having flulike symptoms and also from vaginal bleed ing. Patient is 2 weeks past her menstrual period date. She took test which was negative. She had some's mild spotting vaginally last night. However, this morning she began having a larger amount of vaginal bleeding with left lower quadrant abdominal cramping. She had associated nasal congestion cough and sore throat. She denies chest pain. She has had no vomiting or diarrhea. She has been exposed to individuals with viral illness. She has a child that has been sick for the last several days. Timing/Duration: yesterday Cough Quality/Degree: mild (She describes her cough is moist but nonproductive) Possible Cause: no prior episodes Modifying Factors: Improves With: coughing Associated Symptoms: cough, muscle aches, nasal congestion, sore throat, No fever Allergies/Adverse Reactions: No Known Drug Allergies Allergy (Verified 09/05/22 13:45) Home Medications: Lamotrigine [Lamotrigine ER] 1 tab PO DAILY 09/05/22 [History] Hx Tetanus, Diphtheria Vaccination/Date Given: Yes Hx Influenza Vaccination/Date Given: No Hx Pneumococcal Vaccination/Date Given: No Travel Risk - Coronavirus Screening Are you exhibiting any of the following symptoms?: Yes Symptoms: Cough: New Onset, Headaches/Body Aches/Fatigue Close contact with a COVID-19 positive Pt in past 14-21 Days: No - Vaccine Status Have you recieved a Covid-19 vaccination: No - Review of Systems Constitutional: No Symptoms Eyes: No Symptoms Ears, Nose, & Throat: Nose Congestion, Throat Pain Respiratory: Cough Cardiac: No Symptoms Abdominal/Gastrointestinal: Abdominal Pain (Left lower quadrant cramping) Genitourinary Symptoms: Vaginal Bleeding Musculoskeletal: No Symptoms Skin: No Symptoms (Today) Neurological: No Symptoms Psychological: No Symptoms Endocrine: No Symptoms Hematologic/Lymphatic: No Symptoms Immunological/Allergic: No Symptoms All Other Systems: Reviewed and Negative - Past Medical History Pertinent Past Medical History: Yes Neurological History: No Pertinent History ENT History: No Pertinent History Cardiac History: No Pertinent History Respiratory History: No Pertinent History Endocrine Medical History: No Pertinent History Musculoskeletal History: No Pertinent History GI Medical History: No Pertinent History History: No Pertinent History Psycho-Social History: Other Female Reproductive Disorders: No Pertinent History Other Medical History: OCD - Past Surgical History Past Surgical History: No Neuro Surgical History: No Pertinent History Cardiac: No Pertinent History Respiratory: No Pertinent History Gastrointestinal: No Pertinent History Genitourinary: No Pertinent History Musculoskeletal: No Pertinent History Female Surgical History: No Pertinent History - Social History Smoking Status: Current every day smoker Exposure to second hand smoke: No Drug Use: none Patient Lives Alone: Yes Significant Family History: no pertinent family hx - Nursing Vital Signs Nursing Vital Signs: Initial Vital Signs Temperature 98.7 F 09/05/22 13:36 Pulse Rate 98 H 09/05/22 13:36 Respiratory Rate 20 09/05/22 13:36 Blood Pressure 109/73 09/05/22 13:36 O2 Sat by Pulse Oximetry 98 09/05/22 13:36 Pain Scale Pain Intensity 0 - Physical Exam General Appearance: no apparent distress, alert, anxiety, thin Eye Exam: PERRL/EOMI, eyes nml inspection Ears, Nose, Throat Exam: normal ENT inspection, moist mucous membranes Neck Exam: normal inspection, non-tender, supple, full range of motion Respiratory Exam: normal breath sounds, lungs clear, airway intact, No chest tenderness, No respiratory distress Cardiovascular Exam: regular rate/rhythm, normal heart sounds, normal peripheral pulses Gastrointestinal/Abdomen Exam: soft, normal bowel sounds, tenderness (Left lower quadrant), No guarding, No rebound Pelvic Exam: not done Rectal Exam: not done Back Exam: normal inspection, normal range of motion, No CVA tenderness, No vertebral tenderness Extremity Exam: normal inspection, normal range of motion, pelvis stable Neurologic Exam: alert, oriented x 3, cooperative, 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 as tested, normal mood/affect, nml cerebellar function, nml station & gait, sensation nml Skin Exam: normal color, warm, dry Lymphatic Exam: No adenopathy SpO2 Interpretation: normal O2 Delivery: Room Air - Course Nursing assessment & vital signs reviewed: Yes Ordered Tests: Active Orders 24 hr Category Date Time Status IV Insertion STAT Care 09/05/22 13:45 Active CHEST 1 VIEW (PORTABLE) Stat Exams 09/05/22 13:46 Completed BLOOD CULTURE Stat Lab 09/05/22 14:09 Received CBC W DIFF Stat Lab 09/05/22 13:56 Completed CMP Stat Lab 09/05/22 13:56 Completed CULTURE,URINE Stat Lab 09/05/22 13:36 Received HCG QUALITATIVE,SERUM Stat Lab 09/05/22 13:56 Completed [place] Screen Stat Lab 09/05/22 13:56 Completed UA W/RFX CULTURE Stat Lab 09/05/22 13:36 Completed Medication Summary Discontinued Medications Generic Name Dose Route Start Last Admin Trade Name Jose Juan PRN Reason Stop Dose Admin Sodium Chloride 1,000 mls @ 999 mls/hr 09/05/22 13:45 09/05/22 15:23 Sodium Chloride 0.9% 1000 Ml IV 09/05/22 14:45 Infused .Q1H1M STA Infusion Sodium Chloride Confirm 09/05/22 13:58 Sodium Chloride 0.9% 1000 Ml Administered 09/05/22 13:59 Dose 1,000 mls @ ud .ROUTE .STK-MED ONE Sodium Chloride 500 mls @ 500 mls/hr 09/05/22 15:05 09/05/22 16:15 Sodium Chloride 0.9% 500 Ml IV 09/05/22 16:04 Infused .Q1H ONE Infusion Sodium Chloride Confirm 09/05/22 15:13 Sodium Chloride 0.9% 500 Ml Administered 09/05/22 15:14 Dose 500 mls @ ud IV .STK-MED ONE Ceftriaxone Sodium/Dextrose 1 g in 50 mls @ 100 mls/hr 09/05/22 15:24 09/05/22 16:10 Rocephin 1 Gm-D5w 50 Ml Bag IV 09/05/22 15:53 Infused STAT STA Infusion Ceftriaxone Sodium/Dextrose Confirm 09/05/22 15:31 Rocephin 1 Gm-D5w 50 Ml Bag Administered 09/05/22 15:32 Dose 1 g in 50 mls @ ud IV .STK-MED ONE Ondansetron HCl 4 mg 09/05/22 13:45 09/05/22 14:11 Ondansetron Hcl 4 Mg/2 Ml Vial IV 09/05/22 13:46 4 mg STAT ONE Administration Ondansetron HCl Confirm 09/05/22 13:58 Ondansetron Hcl 4 Mg/2 Ml Vial Administered 09/05/22 13:59 Dose 4 mg .ROUTE .STK-MED ONE Oseltamivir Phosphate 75 mg 09/05/22 15:26 09/05/22 15:32 Oseltamivir 75 Mg Cap PO 09/05/22 15:27 75 mg STAT ONE Administration Oseltamivir Phosphate Confirm 09/05/22 15:31 Oseltamivir 75 Mg Cap Administered 09/05/22 15:32 Dose 75 mg PO .[facility] ONE Lab/Rad Data: Laboratory Result Diagrams 09/05/22 13:56 09/05/22 13:56 Laboratory Results 09/05/22 09/05/22 09/05/22 Range/Units 13:59 13:59 13:56 WBC (4.0-10.5) x10^3/uL RBC (4.1-5.4) x10^6/uL Hgb (12.0-16.0) g/dL Hct (35-47) % MCV (78-100) fL MCH (26-32) pg MCHC (32-36) g/dL RDW (11.5-14.0) % Plt Count (150-450) x10^3/uL MPV (7.5-11.0) fL Gran % (36.0-66.0) % Immature Gran % (Auto) (0.00-0.4) % Nucleat RBC Rel Count (0.00-0.1) % Eos # (Auto) (0-0.5) x10^3/uL Immature Gran # (Auto) (0.00-0.03) x10^3u/L Absolute Lymphs (auto) (1.0-4.6) x10^3/uL Absolute Monos (auto) (0.0-1.3) x10^3/uL Absolute Nucleated RBC (0.00-0.01) x10^3u/L Lymphocytes % (24.0-44.0) % Monocytes % (0.0-12.0) % Eosinophils % (0.00-5.0) % Basophils % (0.0-0.4) % Absolute Granulocytes (1.4-6.9) x10^3/uL Basophils # (0-0.4) x10^3/uL Sodium (137-145) mmol/L Potassium (3.5-5.1) mmol/L Chloride (98-107) mmol/L Carbon Dioxide (22-30) mmol/L Anion Gap (5-15) MEQ/L BUN (7-17) mg/dL Creatinine (0.52-1.04) mg/dL Estimated GFR ML/MIN Glucose (74-106) mg/dL Calcium (8.4-10.2) mg/dL Total Bilirubin (0.2-1.3) mg/dL AST (14-36) U/L ALT (0-35) U/L Alkaline Phosphatase (38-126) U/L Serum Total Protein (6.3-8.2) g/dL Albumin (3.5-5.0) g/dL Serum , Qual NEGATIVE (Negative) Urinalys Dipstick Clnc Urine Color (YELLOW) Urine Appearance (CLEAR) Urine pH (5-6) Ur Specific [place] (1.005-1.025) POC Urine Protein Conf (Negative) Urine Ketones (NEGATIVE) Urine Nitrite (NEGATIVE) Urine Bilirubin (NEGATIVE) Urine Urobilinogen (0-1) mg/dL Urine Leukocytes (NEGATIVE) Urine WBC (Auto) (0-5) /HPF Urine RBC (Auto) (0-2) /HPF U Epithel Cells (Auto) (FEW) /HPF Urine Bacteria (Auto) (NEGATIVE) /HPF Urine RBC (0-5) Ke/ul Urine Mucus (Auto) (NEGATIVE) /HPF Ur Culture Indicated? Urine Glucose (NEGATIVE) mg/dL Monoscreen WEAKLY POSITIVE (Negative) Influenza Type A Ag POSITIVE (NEGATIVE) Influenza Type B Ag NEGATIVE (NEGATIVE) RSV (PCR) NEGATIVE (Negative) SARS-CoV-2 (PCR) NEGATIVE (NEGATIVE) Group A Strep Antibody DETECTED (NEGATIVE) 09/05/22 09/05/22 09/05/22 Range/Units 13:56 13:56 13:36 WBC 4.7 (4.0-10.5) x10^3/uL RBC 4.40 (4.1-5.4) x10^6/uL Hgb 13.2 (12.0-16.0) g/dL Hct 40.4 (35-47) % MCV 91.8 (78-100) fL MCH 30.0 (26-32) pg MCHC 32.7 (32-36) g/dL RDW 12.2 (11.5-14.0) % Plt Count 192 (150-450) x10^3/uL MPV 10.1 (7.5-11.0) fL Gran % 70.8 H (36.0-66.0) % Immature Gran % (Auto) 0.9 H (0.00-0.4) % Nucleat RBC Rel Count 0.0 (0.00-0.1) % Eos # (Auto) 0.01 (0-0.5) x10^3/uL Immature Gran # (Auto) 0.04 H (0.00-0.03) x10^3u/L Absolute Lymphs (auto) 0.91 L (1.0-4.6) x10^3/uL Absolute Monos (auto) 0.39 (0.0-1.3) x10^3/uL Absolute Nucleated RBC 0.00 (0.00-0.01) x10^3u/L Lymphocytes % 19.5 L (24.0-44.0) % Monocytes % 8.4 (0.0-12.0) % Eosinophils % 0.2 (0.00-5.0) % Basophils % 0.2 (0.0-0.4) % Absolute Granulocytes 3.31 (1.4-6.9) x10^3/uL Basophils # 0.01 (0-0.4) x10^3/uL Sodium 140 (137-145) mmol/L Potassium 3.3 L (3.5-5.1) mmol/L Chloride 102 (98-107) mmol/L Carbon Dioxide 27 (22-30) mmol/L Anion Gap 13.6 (5-15) MEQ/L BUN 6 L (7-17) mg/dL Creatinine 0.52 (0.52-1.04) mg/dL Estimated GFR > 60.0 ML/MIN Glucose 95 (74-106) mg/dL Calcium 8.4 (8.4-10.2) mg/dL Total Bilirubin 0.30 (0.2-1.3) mg/dL AST 33 (14-36) U/L ALT 21 (0-35) U/L Alkaline Phosphatase 61 (38-126) U/L Serum Total Protein 8.0 (6.3-8.2) g/dL Albumin 4.4 (3.5-5.0) g/dL Serum , Qual (Negative) Urinalys Dipstick Clnc MAIN LAB Urine Color YELLOW (YELLOW) Urine Appearance CLEAR (CLEAR) Urine pH 6.0 (5-6) Ur Specific [place] >=1.030 A (1.005-1.025) POC Urine Protein Conf 30 A (Negative) Urine Ketones MODERATE-40 A (NEGATIVE) Urine Nitrite NEGATIVE (NEGATIVE) Urine Bilirubin NEGATIVE (NEGATIVE) Urine Urobilinogen 2 A (0-1) mg/dL Urine Leukocytes NEGATIVE (NEGATIVE) Urine WBC (Auto) 6-10 A (0-5) /HPF Urine RBC (Auto) 16-25 A (0-2) /HPF U Epithel Cells (Auto) RARE (FEW) /HPF Urine Bacteria (Auto) RARE (NEGATIVE) /HPF Urine RBC LARGE A (0-5) Ke/ul Urine Mucus (Auto) MANY A (NEGATIVE) /HPF Ur Culture Indicated? YES Urine Glucose NEGATIVE (NEGATIVE) mg/dL Monoscreen (Negative) Influenza Type A Ag (NEGATIVE) Influenza Type B Ag (NEGATIVE) RSV (PCR) (Negative) SARS-CoV-2 (PCR) (NEGATIVE) Group A Strep Antibody (NEGATIVE) - Progress Progress: improved, re-examined Air Movement: good Progress Note: 09/05/22 15:07 Chest x-ray shows no acute cardiopulmonary process. Blood Culture(s) Obtained: Yes - Departure Departure Disposition: Home Clinical Impression: Influenza A, Strep pharyngitis, Mononucleosis, UTI (urinary tract infection), Hypokalemia Condition: Stable Critical Care Time: No Referrals: ELLIE VIDAL NP [Primary Care Provider] - Follow up/PCP as directed Additional Instructions: Drink plenty of fluids. Take your medication as prescribed. Prescriptions: Cefdinir 300 mg PO BID #14 cap Oseltamivir 75 mg [Tamiflu 75MG Capsule] 75 mg PO BID #10 cap
[2022-09-05] MEDS ORDERED: Sodium Chloride 0.9% 1000 ML 1,000 ML ONE (13:58)
[2022-09-05] MEDS ORDERED: Zofran 4 MG/2 ML VIAL ONE (13:58)
[2022-09-05] MEDS: Sodium Chloride 0.9% 1000 ML 1,000 ML IV STA (14:10)
[2022-09-05] MEDS: Zofran 4 MG/2 ML VIAL IV ONE (14:11)
[2022-09-05 14:22] LABS: Absolute Neutrophil Ct (ANC) 3.31 x10^3/uL (1.4-6.9); Basophil (Absolute #) 0.01 x10^3/uL (0-0.4); Eosinophil % 0.2 % (0.00-5.0); Eosinophil (Absolute #) 0.01 x10^3/uL (0-0.5); Hematocrit 40.4 % (35-47); Hemoglobin 13.2 g/dL (12.0-16.0); Lymphocyte (Absolute #) 0.91 x10^3/uL (1.0-4.6); Lymphocytes % 19.5 % (24.0-44.0); Mean Cell Volume 91.8 fL (78-100); Mean Corpuscular Hgb Concent. 32.7 g/dL (32-36); Mean Platelet Volume 10.1 fL (7.5-11.0); Monocyte (Absolute #) 0.39 x10^3/uL (0.0-1.3); Monocytes % 8.4 % (0.0-12.0); Neutrophil % 70.8 % (36.0-66.0); Platelet Count 192 x10^3/uL (150-450); Red Cell Distribution Width 12.2 % (11.5-14.0); White Blood Count 4.7 x10^3/uL (4.0-10.5)
[2022-09-05 14:36] LABS: HCG QUALITATIVE,SERUM NEGATIVE (Negative); Mono Screen WEAKLY POSITIVE (Negative)
[2022-09-05 14:39] LABS: ALBUMIN 4.4 g/dL (3.5-5.0); ALKALINE PHOSPHATASE 61 U/L (38-126); ANION GAP 13.6 MEQ/L (5-15); BLOOD UREA NITROGEN 6 mg/dL (7-17); CHLORIDE 102 mmol/L (98-107); Calcium 8.4 mg/dL (8.4-10.2); Carbon Dioxide 27 mmol/L (22-30); Creatinine 1 0.52 mg/dL (0.52-1.04); EST GLOMERULAR FILTRATION RATE > 60.0 ML/MIN; Glucose 95 mg/dL (74-106); Potassium 3.3 mmol/L (3.5-5.1); SGOT/AST 33 U/L (14-36); SGPT/ALT 21 U/L (0-35); SODIUM 140 mmol/L (137-145)
--- NOTE | 2022-09-05 15:06 | XRAY ---
Indication: Cough. Comparison: None Portable chest hyperinflated and clear. Heart not enlarged. Bony thorax intact with incidental mild levoscoliosis and bilateral nipple jewelry. Impression: Nonacute hyperinflated chest.
[2022-09-05 15:09] LABS: INFLUENZA B NEGATIVE (NEGATIVE); RESPIRATORY SYNCTIAL VIRUS NEGATIVE (Negative); SARS-CoV-2 Xpert Express NEGATIVE (NEGATIVE)
[2022-09-05] MEDS ORDERED: Sodium Chloride 0.9% 500 ML 500 ML IV ONE (15:13)
[2022-09-05] MEDS: Sodium Chloride 0.9% 500 ML 500 ML IV ONE (15:14)
[2022-09-05 15:20] LABS: INFLUENZA A POSITIVE (NEGATIVE)
[2022-09-05] MEDS ORDERED: Tamiflu 75MG Capsule PO ONE (15:31)
[2022-09-05] MEDS ORDERED: ROCEPHIN 1 Gm-D5w 50 ml Bag** 1 G/50 ML IVPB IV ONE (15:31)
[2022-09-05] MEDS: Tamiflu 75MG Capsule PO ONE (15:32)
[2022-09-05] MEDS: ROCEPHIN 1 Gm-D5w 50 ml Bag** 1 G/50 ML IVPB IV STA (15:32)
[2022-09-05 16:49] LABS: Bacteria RARE /HPF (NEGATIVE); Epithelial Cells RARE /HPF (FEW); Mucus MANY /HPF (NEGATIVE)
[2022-09-05 16:53] LABS: Appearance CLEAR (CLEAR); Bilirubin NEGATIVE (NEGATIVE); Dipstick done @ ? MAIN LAB; Glucose NEGATIVE (NEGATIVE); Ketones MODERATE-40 (NEGATIVE); Nitrite NEGATIVE (NEGATIVE); Protein,Urine Dip 30 (Negative); RBC LARGE Ery/ul (0-5); Specific Gravity >=1.030 (1.005-1.025); Urobilinogen 2 mg/dL (0-1)
[2022-09-05 16:54] LABS: Urine Cultured Indicated? YES
[2022-09-05] MEDS ORDERED: Klor Con PO ONE (17:03)
[2022-09-05] MEDS: Klor Con PO ONE (17:05)
[2022-09-05 17:27] VITALS: BP 110/68; PULSE 98; O2SAT 97
== END 2022-09-05 17:27 | disposition home or self-care (01) ==
LOC: ED 13:36
DX: N39.0 Urinary tract infection, site not specified (principal); J10.1 Influenza due to other identified influenza virus with other respiratory manifestations; J02.0 Streptococcal pharyngitis; B95.0 Streptococcus, group A, as the cause of diseases classified elsewhere; B27.90 Infectious mononucleosis, unspecified without complication; E87.6 Hypokalemia; R10.32 Left lower quadrant pain; N93.9 Abnormal uterine and vaginal bleeding, unspecified; R09.81 Nasal congestion; R05.9 Cough, unspecified; Z72.0 Tobacco use; Z79.899 Other long term (current) drug therapy; Z28.310 Unvaccinated for COVID-19
CPT/HCPCS: 0241U; 36000; 36415; 71045; 80053; 81015; 84703; 85025; 86308; 87040; 87086; 87651; 96360; 96365; 96374; 99284; J0696; J2405; A9270-GY

== ENCOUNTER 2022-10-07 17:22 | Emergency (ER) | payer OTHER ==
[2022-10-07] MEDS ORDERED: Ativan 2 MG/1 ML VIAL IM ONE (17:44)
--- NOTE | 2022-10-07 17:47 | ERPHSYRPT ---
- History of Present Illness Time Seen by Provider: 10/07/22 17:44 Source: patient Exam Limitations: no limitations Patient Subjective Stated Complaint: Pt states "I found some stuff out last night and I have basically been in a 15 hour panic attack." Triage Nursing Assessment: PT presented alert and oriented X 3, skin pwd. Pt ambulates with an upright steady gait, able to speak in clear full sentences pt in no apaprent respiratory distress. Pt resting comfortably on the bed. Physician History: Pt states "I found some stuff out last night and I have basically been in a 15 hour panic attack." Patient is 22-year-old female with significant past medical history of bipolar disorder for which patient is on Lamictal. Recently patient found out some disturbing things about her ex- and it has been bothering her for last 1 day since last 12 to 15 hours she has been very anxious and panicky feeling that her heart is racing she is feeling tingling and numbness all over the body she denies any other symptoms. Timing/Duration: yesterday Severity: moderate Associated Symptoms: denies symptoms Allergies/Adverse Reactions: No Known Drug Allergies Allergy (Verified 09/05/22 13:45) Home Medications: Lamotrigine [Lamotrigine ER] 1 tab PO DAILY 09/05/22 [History] Hx Tetanus, Diphtheria Vaccination/Date Given: Yes Hx Influenza Vaccination/Date Given: No Hx Pneumococcal Vaccination/Date Given: No Immunizations Up to Date: Yes Travel Risk - International Travel Have you traveled outside of the country in past 3 weeks: No - Coronavirus Screening Are you exhibiting any of the following symptoms?: No - Vaccine Status Have you recieved a Covid-19 vaccination: No - Review of Systems Constitutional: No Symptoms Eyes: No Symptoms Ears, Nose, & Throat: No Symptoms Respiratory: No Symptoms Cardiac: No Symptoms Abdominal/Gastrointestinal: No Symptoms Genitourinary Symptoms: No Symptoms Musculoskeletal: No Symptoms Skin: No Symptoms Neurological: No Symptoms Psychological: Anxiety Endocrine: No Symptoms Hematologic/Lymphatic: No Symptoms - Past Medical History Pertinent Past Medical History: Yes Neurological History: No Pertinent History ENT History: No Pertinent History Cardiac History: No Pertinent History Respiratory History: No Pertinent History Endocrine Medical History: No Pertinent History Musculoskeletal History: No Pertinent History GI Medical History: No Pertinent History History: No Pertinent History Psycho-Social History: Other Female Reproductive Disorders: No Pertinent History Other Medical History: OCD - Past Surgical History Past Surgical History: No Neuro Surgical History: No Pertinent History Cardiac: No Pertinent History Respiratory: No Pertinent History Gastrointestinal: No Pertinent History Genitourinary: No Pertinent History Musculoskeletal: No Pertinent History Female Surgical History: No Pertinent History - Social History Smoking Status: Current every day smoker Exposure to second hand smoke: No Drug Use: none Patient Lives Alone: Yes Significant Family History: no pertinent family hx - Female History Hx Last Menstrual Period: 10/06/2022 Hx Now: No - Nursing Vital Signs Nursing Vital Signs: Initial Vital Signs Temperature 98.8 F 10/07/22 17:32 Pulse Rate 114 H 10/07/22 17:32 Respiratory Rate 20 10/07/22 17:32 Blood Pressure 114/75 10/07/22 17:32 O2 Sat by Pulse Oximetry 100 10/07/22 17:32 Pain Scale Pain Intensity 4 - Physical Exam General Appearance: no apparent distress, alert Eye Exam: PERRL/EOMI, eyes nml inspection Ears, Nose, Throat Exam: normal ENT inspection, TMs normal, pharynx normal, moist mucous membranes Neck Exam: normal inspection, non-tender, supple, full range of motion Respiratory Exam: normal breath sounds, lungs clear, No respiratory distress Cardiovascular Exam: regular rate/rhythm, normal heart sounds, normal peripheral pulses Gastrointestinal/Abdomen Exam: soft, normal bowel sounds, No tenderness, No mass Back Exam: normal inspection, normal range of motion, No CVA tenderness, No vertebral tenderness Extremity Exam: normal inspection, normal range of motion, pelvis stable Neurologic Exam: alert, oriented x 3, cooperative, normal mood/affect, nml cerebellar function, nml station & gait, sensation nml, No motor deficits Skin Exam: normal color, warm, dry, No rash Lymphatic Exam: No adenopathy SpO2 Interpretation: normal SpO2: 100 O2 Delivery: Room Air - Course Nursing assessment & vital signs reviewed: Yes - Progress Progress: improved Counseled pt/family regarding: diagnosis, need for follow-up - Departure Departure Disposition: Home Clinical Impression: Anxiety, Stress Condition: Stable Critical Care Time: No Referrals: ELLIE PICKETT NP [Primary Care Provider] - Follow up/PCP as directed Instructions: Anxiety, Adult (DC) Additional Instructions: Discharge/Care Plan ROSS FOLEY was seen on 10/07/22 in the Emergency Room. The patient was counseled regarding Diagnosis,Lab results, Imaging studies, need for follow up and when to return to the Emergency Room. Prescriptions given: Discharge Note I have spoken with the patient and/or caregivers. I have explained the patient's condition, diagnosis and treatment plan based on the information available to me at this time. I have answered the patient's and/or caregiver's questions and addressed any concerns. The patient and/or caregivers have as good understanding of the patient's diagnosis, condition and treatment plan as can be expected at this point. The vital signs have been stable. The patient's condition is stable and appropriate for discharge from the emergency department. The patient will pursue further outpatient evaluation with the primary care physician or other designated or consulting physician as outlined in the discharge instructions. The patient and/or caregivers are agreeable to this plan of care and follow-up instructions have been explained in detail. The patient and/or caregivers have received these instruction. The patient/and or caregivers are aware that any significant change in condition or worsening of symptoms should prompt an immediate return to this or the closest emergency department or call 911. ROSS FOLEY was seen on 10/07/22 n the Emergency Room. At that time you were treated for an emergent condition, during your visit Laboratory, Radiology and/or other procedures may have been ordered. It is very important that you follow-up with your Primary Care Physician ELLIE PICKETT within the next 24-48 hours to review your Emergency Room visit and the final results of testing that was ordered. Some test results such as Urine Cultures, Blood Cultures, and other cultures if ordered will not be finalized for 24-48 hours. If you do not have a Primary Care Provider please call the medical records department at [phone] to obtain a copy of your results or you may sign into our patient portal to obtain these results by visiting us @ [email or web address] and completing the following steps: 1. Click on the Patient Portal link 2. Click the Patient Self Enrollment Link to complete the enrollment form and entering your 3. Once the enrollment form is completed you will receive an email with a temporary ID and password at the email address you provided. 4. Next choose a user name and password. Your user name must be at least 4 characters long and your password must be at least 4 characters long. 5. Choose a security question from the list and provide your answer to the question. If you already have signed into the Health Portal you may access your Health Care Information 20/05 by the following steps: 1. Login to our website @ [email or web address] 2. Enter your original user name and password. FAQS The [facility] Portal is an online tool that contains your Lab Results, Radiology Reports, Visit History, Discharge Instructions and Health Summary Lab and Radiology Results will not be available for 72 hours on the portal. The Portal is a secure site, passwords are encryted and URLs are re-written so they cannot be copied and pasted. You and authorized family members are the only ones who can access your Portal. Also there is a timeout feature that protects your information if you leave the Portal page open. If you have technical difficulty please use the Contact Us link on the page this will allow you to submit any questions you have regarding the Portal or you may contact the Medical Record Department at [phone].
[2022-10-07] MEDS ORDERED: Ativan 2 MG/1 ML VIAL ONE (17:55)
[2022-10-07 18:17] VITALS: BP 130/79; PULSE 86; O2SAT 98
== END 2022-10-07 18:25 | disposition home or self-care (01) ==
LOC: ED 17:22
DX: F43.0 Acute stress reaction (principal); F41.9 Anxiety disorder, unspecified; Z79.899 Other long term (current) drug therapy; Z28.310 Unvaccinated for COVID-19; Z72.0 Tobacco use
CPT/HCPCS: 93005; 96372; 99283; J2060

== ENCOUNTER 2023-01-22 19:51 | Emergency (ER) | payer OTHER ==
--- NOTE | 2023-01-22 19:53 | ERPHSYRPT ---
- History of Present Illness Time Seen by Provider: 01/22/23 19:53 Historian: patient Exam Limitations: no limitations Physician History: Pt c/o chest pain; a few episodes during last few weeks. Pain located on right side. + radiation to back Described as sharp. Worse laying down Tylenol helping some Lasts for a few minutes. Both at rest and on exertion. Hx of anxiety w/out meds for the last 3mo Denies abd pain, dysuria, SOB + dizziness Endorses heartburn and emotional stressors. Denies SOB or palpitations. Timing/Duration: today Activities at Onset: rest Quality: sharpness Location: other (right chest) Chest Pain Radiation: back Severity of Pain-Max: severe Severity of Pain-Current: severe Modifying Factors: Improves With: antacids. Worsens With: eating, movement, change in position (laying down) Associated Symptoms: dizziness, No nausea, No vomiting, No palpitations, No heartburn, No abdominal pain, No shortness of breath, No fever, No edema Prior Chest Pain/Cardiac Workup: no prior chest pain Nitro Today/Relief: no nitro taken today Aspirin Treatment Today: 81 mg x 4, provided by ED Allergies/Adverse Reactions: No Known Drug Allergies Allergy (Verified 01/22/23 19:54) Hx Tetanus, Diphtheria Vaccination/Date Given: Yes Hx Influenza Vaccination/Date Given: No Hx Pneumococcal Vaccination/Date Given: No Travel Risk - Vaccine Status Have you recieved a Covid-19 vaccination: No - Review of Systems Constitutional: No Symptoms Eyes: No Symptoms Ears, Nose, & Throat: No Symptoms Respiratory: No Symptoms Cardiac: Chest Pain, No Edema, No Palpitations, No Syncope Abdominal/Gastrointestinal: Appetite Changes, No Abdominal Pain, No Nausea, No Vomiting, No Diarrhea Genitourinary Symptoms: No Symptoms Musculoskeletal: Back Pain Skin: No Symptoms Neurological: Dizziness Psychological: Anxiety, Depression, Emotional Lability, Mood Changes Endocrine: No Symptoms Hematologic/Lymphatic: No Symptoms Immunological/Allergic: No Symptoms All Other Systems: Reviewed and Negative - Past Medical History Pertinent Past Medical History: Yes Neurological History: No Pertinent History ENT History: No Pertinent History Cardiac History: No Pertinent History Respiratory History: No Pertinent History Endocrine Medical History: No Pertinent History Musculoskeletal History: No Pertinent History GI Medical History: No Pertinent History History: No Pertinent History Psycho-Social History: Other Female Reproductive Disorders: No Pertinent History Other Medical History: OCD - Past Surgical History Past Surgical History: No Neuro Surgical History: No Pertinent History Cardiac: No Pertinent History Respiratory: No Pertinent History Gastrointestinal: No Pertinent History Genitourinary: No Pertinent History Musculoskeletal: No Pertinent History Female Surgical History: No Pertinent History - Social History Smoking Status: Current every day smoker Exposure to second hand smoke: No Drug Use: none Patient Lives Alone: Yes Significant Family History: no pertinent family hx - Nursing Vital Signs Nursing Vital Signs: Initial Vital Signs Temperature 98.9 F 01/22/23 19:51 Pulse Rate 80 01/22/23 19:51 Respiratory Rate 16 01/22/23 19:51 Blood Pressure 125/80 01/22/23 19:51 O2 Sat by Pulse Oximetry 100 01/22/23 19:51 Pain Scale Pain Intensity 4 - Physical Exam General Appearance: no apparent distress Eye Exam: eyes nml inspection Ears, Nose, Throat Exam: normal ENT inspection Neck Exam: normal inspection Respiratory Exam: normal breath sounds, chest tenderness, lungs clear, airway intact, No respiratory distress Cardiovascular Exam: regular rate/rhythm, normal heart sounds, capillary refill <2 sec, No edema Gastrointestinal/Abdomen Exam: soft, normal bowel sounds, No tenderness, No guarding, No rebound Back Exam: normal inspection, normal range of motion Extremity Exam: normal inspection, normal range of motion, No swelling, No tenderness Neurologic Exam: alert, oriented x 3 Skin Exam: normal color, warm, dry SpO2 Interpretation: normal O2 Delivery: Room Air - Course Nursing assessment & vital signs reviewed: Yes EKG Interpreted by Me: RATE (76), Sinus Rhythm, NORMAL AXIS, NORMAL INTERVALS, NORMAL QRS, NORMAL ST-T - Radiology Exams Chest X-ray Interpretation: Interpreted by me, Negative Ordered Tests: Active Orders 24 hr Category Date Time Status Pin Machine Tender STAT Care 01/22/23 20:05 Completed EKG-ER Only STAT Care 01/22/23 20:04 Completed IV Insertion STAT Care 01/22/23 20:04 Completed CHEST 2 VIEWS (PA AND LAT) Stat Exams 01/22/23 20:05 Taken CBC W DIFF Stat Lab 01/22/23 20:08 Completed CMP Stat Lab 01/22/23 20:08 Completed HCG,QUALITATIVE URINE Stat Lab 01/22/23 20:23 Completed TROPONIN Q4H Lab 01/22/23 20:08 Completed Urine Triage Profile Stat Lab 01/22/23 20:08 Completed Medication Summary Discontinued Medications Generic Name Dose Route Start Last Admin Trade Name Jose Juan PRN Reason Stop Dose Admin Al Hydrox/Mg Hydrox/Simethicone Confirm 01/22/23 20:19 Mag Hydrox/Al Hydrox/Simeth 30 Ml Udcup Administered 01/22/23 20:20 Dose 30 ml .ROUTE .STK-MED ONE Aspirin 324 mg 01/22/23 20:04 01/22/23 20:12 Aspirin 81 Mg Tab.Chew PO 01/22/23 20:05 324 mg STAT ONE Administration Aspirin Confirm 01/22/23 20:10 Aspirin 81 Mg Tab.Chew Administered 01/22/23 20:11 Dose 324 mg .ROUTE .STK-MED ONE Lidocaine HCl Confirm 01/22/23 20:19 Lidocaine Hcl 2% Viscous 15 Ml Udcup Administered 01/22/23 20:20 Dose 15 ml .ROUTE .STK-MED ONE Lorazepam 1 mg 01/22/23 20:07 01/22/23 20:12 Lorazepam 2 Mg/1 Ml 2 Mg Vial IV 01/22/23 20:08 1 mg STAT ONE Administration Lorazepam Confirm 01/22/23 20:11 Lorazepam 2 Mg/1 Ml 2 Mg Vial Administered 01/22/23 20:12 Dose 2 mg .ROUTE .STK-MED ONE Magnesium Hydroxide 45 ml 01/22/23 20:09 01/22/23 20:20 Mag Hydrx/Alum Hyd/Simeth/Lido 45 Ml Bottle PO 01/22/23 20:10 45 ml STAT ONE Administration Nitroglycerin 0.4 mg 01/22/23 20:04 01/22/23 20:12 Nitroglycerin 0.4 Mg (Ed) 0.4 Mg Tab.Subl SL 01/22/23 20:05 0.4 mg STAT ONE Administration Nitroglycerin Confirm 01/22/23 20:11 Nitroglycerin 0.4 Mg (Ed) 0.4 Mg Tab.Subl Administered 01/22/23 20:12 Dose 0.4 mg SL .STK-MED ONE Pantoprazole Sodium 40 mg 01/22/23 20:07 01/22/23 20:12 Pantoprazole 40 Mg Vial IV 01/22/23 20:08 40 mg STAT ONE Administration Pantoprazole Sodium Confirm 01/22/23 20:11 Pantoprazole 40 Mg Vial Administered 01/22/23 20:12 Dose 40 mg IV .[facility] ONE Lab/Rad Data: Laboratory Result Diagrams 01/22/23 20:08 01/22/23 20:08 Laboratory Results 01/22/23 01/22/23 01/22/23 Range/Units 20:23 20:08 20:08 WBC (4.0-10.5) x10^3/uL RBC (4.1-5.4) x10^6/uL Hgb (12.0-16.0) g/dL Hct (35-47) % MCV (78-100) fL MCH (26-32) pg MCHC (32-36) g/dL RDW (11.5-14.0) % Plt Count (150-450) x10^3/uL MPV (7.5-11.0) fL Gran % (36.0-66.0) % Immature Gran % (Auto) (0.00-0.4) % Nucleat RBC Rel Count (0.00-0.1) % Eos # (Auto) (0-0.5) x10^3/uL Immature Gran # (Auto) (0.00-0.03) x10^3u/L Absolute Lymphs (auto) (1.0-4.6) x10^3/uL Absolute Monos (auto) (0.0-1.3) x10^3/uL Absolute Nucleated RBC (0.00-0.01) x10^3u/L Lymphocytes % (24.0-44.0) % Monocytes % (0.0-12.0) % Eosinophils % (0.00-5.0) % Basophils % (0.0-0.4) % Absolute Granulocytes (1.4-6.9) x10^3/uL Basophils # (0-0.4) x10^3/uL Sodium 141 (137-145) mmol/L Potassium 3.5 (3.5-5.1) mmol/L Chloride 104 (98-107) mmol/L Carbon Dioxide 28 (22-30) mmol/L Anion Gap 12.9 (5-15) MEQ/L BUN 11 (7-17) mg/dL Creatinine 0.67 (0.52-1.04) mg/dL Estimated GFR > 60.0 ML/MIN Glucose 57 L (74-106) mg/dL Calcium 8.6 (8.4-10.2) mg/dL Total Bilirubin 0.40 (0.2-1.3) mg/dL AST 29 (14-36) U/L ALT 20 (0-35) U/L Alkaline Phosphatase 48 (38-126) U/L Troponin I < 0.012 (0.000-0.034) ng/mL Serum Total Protein 7.3 (6.3-8.2) g/dL Albumin 4.2 (3.5-5.0) g/dL Urine HCG, Qual NEGATIVE (Negative) Urine Opiates Level (NEGATIVE) Ur Methadone (NEGATIVE) Urine Barbiturates (NEGATIVE) Ur Phencyclidine (PCP) (NEGATIVE) Urine Amphetamine (NEGATIVE) Urine Cocaine (NEGATIVE) Urine Marijuana (THC) (NEGATIVE) 01/22/23 01/22/23 Range/Units 20:08 20:08 WBC 6.5 (4.0-10.5) x10^3/uL RBC 4.15 (4.1-5.4) x10^6/uL Hgb 12.6 (12.0-16.0) g/dL Hct 38.9 (35-47) % MCV 93.7 (78-100) fL MCH 30.4 (26-32) pg MCHC 32.4 (32-36) g/dL RDW 12.4 (11.5-14.0) % Plt Count 239 (150-450) x10^3/uL MPV 10.6 (7.5-11.0) fL Gran % 67.6 H (36.0-66.0) % Immature Gran % (Auto) 0.3 (0.00-0.4) % Nucleat RBC Rel Count 0.0 (0.00-0.1) % Eos # (Auto) 0.08 (0-0.5) x10^3/uL Immature Gran # (Auto) 0.02 (0.00-0.03) x10^3u/L Absolute Lymphs (auto) 1.58 (1.0-4.6) x10^3/uL Absolute Monos (auto) 0.42 (0.0-1.3) x10^3/uL Absolute Nucleated RBC 0.00 (0.00-0.01) x10^3u/L Lymphocytes % 24.2 (24.0-44.0) % Monocytes % 6.4 (0.0-12.0) % Eosinophils % 1.2 (0.00-5.0) % Basophils % 0.3 (0.0-0.4) % Absolute Granulocytes 4.41 (1.4-6.9) x10^3/uL Basophils # 0.02 (0-0.4) x10^3/uL Sodium (137-145) mmol/L Potassium (3.5-5.1) mmol/L Chloride (98-107) mmol/L Carbon Dioxide (22-30) mmol/L Anion Gap (5-15) MEQ/L BUN (7-17) mg/dL Creatinine (0.52-1.04) mg/dL Estimated GFR ML/MIN Glucose (74-106) mg/dL Calcium (8.4-10.2) mg/dL Total Bilirubin (0.2-1.3) mg/dL AST (14-36) U/L ALT (0-35) U/L Alkaline Phosphatase (38-126) U/L Troponin I (0.000-0.034) ng/mL Serum Total Protein (6.3-8.2) g/dL Albumin (3.5-5.0) g/dL Urine HCG, Qual (Negative) Urine Opiates Level NEGATIVE (NEGATIVE) Ur Methadone NEGATIVE (NEGATIVE) Urine Barbiturates NEGATIVE (NEGATIVE) Ur Phencyclidine (PCP) NEGATIVE (NEGATIVE) Urine Amphetamine NEGATIVE (NEGATIVE) Urine Cocaine NEGATIVE (NEGATIVE) Urine Marijuana (THC) NEGATIVE (NEGATIVE) - Progress Progress: improved Air Movement: good Progress Note: 01/23/23 00:18 Lab evaluation negative, likely costochondritis due to recent URI. I feel like there is also a component of anxiety as well. Discussed treatment w/ NSAIDs and encouraged f/u for anxiety management. Patient agreeable w/ plan. 01/23/23 00:20 Blood Culture(s) Obtained: No Antibiotics given: No Counseled pt/family regarding: lab results, diagnosis, need for follow-up, rad r esults Medical Desision Making - Diagnostic Testing Diagnostic test were ordered, analyzed, and reviewed by me: Yes Radiological Interpretation: Interpreted by me, Reviewed by me - Risk of complications The pt has a mod risk of morbidity or mortality based on: Need for prescription drug management - Departure Departure Disposition: Home Clinical Impression: Costochondritis, acute, Anxiety Condition: Good Critical Care Time: No Referrals: ELLIE PICKETT CLINICAL SYSTEMS ANALYST [Primary Care Provider] - Follow up/PCP as directed Instructions: Costochondritis (DC) Prescriptions: Ketorolac Trometh 10 mg Tab [TORAdol 10 MG TABLET] 10 mg PO TID PRN 10 Days #30 tablet PRN Reason: Pain
[2023-01-22] MEDS ORDERED: Nitrostat 0.4 MG (ED) SL ONE ×2 (20:04→20:11)
[2023-01-22] MEDS ORDERED: BABY ASPIRIN 81 MG CHEW PO ONE (20:04)
[2023-01-22] MEDS ORDERED: Ativan 2 MG/1 ML VIAL IV ONE (20:07)
[2023-01-22] MEDS ORDERED: PROTONIX 40 MG IV IV ONE ×2 (20:07→20:11)
[2023-01-22] MEDS ORDERED: GI COCKTAIL 45 ML (Maalox/Lidocaine) PO ONE (20:09)
[2023-01-22] MEDS ORDERED: BABY ASPIRIN 81 MG CHEW ONE (20:10)
[2023-01-22 20:11] LABS: Absolute Neutrophil Ct (ANC) 4.41 x10^3/uL (1.4-6.9); BASOPHIL % 0.3 % (0.0-0.4); Basophil (Absolute #) 0.02 x10^3/uL (0-0.4); Eosinophil % 1.2 % (0.00-5.0); Eosinophil (Absolute #) 0.08 x10^3/uL (0-0.5); Hematocrit 38.9 % (35-47); Hemoglobin 12.6 g/dL (12.0-16.0); IMMATURE GRAN # 0.02 x10^3u/L (0.00-0.03); IMMATURE GRAN % 0.3 % (0.00-0.4); Lymphocyte (Absolute #) 1.58 x10^3/uL (1.0-4.6); Lymphocytes % 24.2 % (24.0-44.0); Mean Cell Volume 93.7 fL (78-100); Mean Corpuscular Hemoglobin 30.4 pg (26-32); Mean Corpuscular Hgb Concent. 32.4 g/dL (32-36); Mean Platelet Volume 10.6 fL (7.5-11.0); Monocyte (Absolute #) 0.42 x10^3/uL (0.0-1.3); Monocytes % 6.4 % (0.0-12.0); Neutrophil % 67.6 % (36.0-66.0); Platelet Count 239 x10^3/uL (150-450); Red Blood Count 4.15 x10^6/uL (4.1-5.4); Red Cell Distribution Width 12.4 % (11.5-14.0); White Blood Count 6.5 x10^3/uL (4.0-10.5)
[2023-01-22] MEDS ORDERED: Ativan 2 MG/1 ML VIAL ONE (20:11)
[2023-01-22] MEDS ORDERED: XYLOCAINE VISCOUS 2% 15 ML CUP ONE (20:19)
[2023-01-22] MEDS ORDERED: MAALOX ES 30 ML UNIT DOSE ONE (20:19)
[2023-01-22 20:28] LABS: Amphetamine,Urine NEGATIVE (NEGATIVE); Barbiturate,Urine NEGATIVE (NEGATIVE); Cocaine,Urine NEGATIVE (NEGATIVE); Methadone,Urine NEGATIVE (NEGATIVE); Opiate,Urine NEGATIVE (NEGATIVE); PCP,Urine NEGATIVE (NEGATIVE); THC,Urine NEGATIVE (NEGATIVE)
[2023-01-22 20:59] LABS: ALBUMIN 4.2 g/dL (3.5-5.0); ALKALINE PHOSPHATASE 48 U/L (38-126); ANION GAP 12.9 MEQ/L (5-15); BLOOD UREA NITROGEN 11 mg/dL (7-17); CHLORIDE 104 mmol/L (98-107); Calcium 8.6 mg/dL (8.4-10.2); Carbon Dioxide 28 mmol/L (22-30); Creatinine 1 0.67 mg/dL (0.52-1.04); EST GLOMERULAR FILTRATION RATE > 60.0 ML/MIN; Glucose 57 mg/dL (74-106); Potassium 3.5 mmol/L (3.5-5.1); SGOT/AST 29 U/L (14-36); SGPT/ALT 20 U/L (0-35); SODIUM 141 mmol/L (137-145); Total Protein 7.3 g/dL (6.3-8.2)
[2023-01-22 22:02] VITALS: BP 115/59; PULSE 84; O2SAT 97
--- NOTE | 2023-01-23 08:37 | XRAY ---
Indication: Chest pain. Comparison: September 05, 2022 PA/lateral chest again demonstrates normal heart and lungs. Bony thorax intact again with minimal levoscoliosis. No new/acute findings.
== END 2023-01-22 22:12 | disposition home or self-care (01) ==
LOC: ED 19:51
DX: M94.0 Chondrocostal junction syndrome [Tietze] (principal); F41.9 Anxiety disorder, unspecified; R07.9 Chest pain, unspecified; R42 Dizziness and giddiness; Z28.310 Unvaccinated for COVID-19; Z72.0 Tobacco use
CPT/HCPCS: 36000; 36415; 71046; 80053; 80307; 81025; 84484; 85025; 93005; 93041; 96374; 96375; 99284; J2060; A9270-GY

== ENCOUNTER 2023-03-24 19:19 | Emergency (ER) | payer OTHER ==
--- NOTE | 2023-03-24 19:32 | ERPHSYRPT ---
- History of Present Illness Time Seen by Provider: 03/24/23 19:32 Source: patient Exam Limitations: no limitations Physician History: 22-year-old female presents to the emergency room after hitting her head on 1/5 wheel hitch prior to arrival. She reports instant headache and 1 episode of vomiting. She did sustain a laceration from the injury that was initially bleeding, but stopped prior to arrival. She denies current headache, nausea, vomiting, focal weakness, paresthesias, difficulty concentrating or difficulty with balance. No history of prior concussion. 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), No syncope, No weakness Allergies/Adverse Reactions: No Known Drug Allergies Allergy (Verified 01/22/23 19:54) Home Medications: Buspirone HCl 5 mg [Buspar 5 mg] 7.5 mg PO BID 03/24/23 [History] Hx Tetanus, Diphtheria Vaccination/Date Given: Yes Hx Influenza Vaccination/Date Given: No Hx Pneumococcal Vaccination/Date Given: No Travel Risk - Vaccine Status Have you recieved a Covid-19 vaccination: No - Review of Systems Constitutional: No Symptoms Eyes: No Symptoms Ears, Nose, & Throat: No Symptoms Respiratory: No Symptoms Cardiac: No Symptoms Abdominal/Gastrointestinal: No Symptoms Genitourinary Symptoms: No Symptoms Musculoskeletal: No Symptoms Skin: Other (laceration of head) Neurological: No Dizziness, No Focal Weakness, No Headache, No Parasthesia, No Sensory Changes Psychological: No Symptoms - Past Medical History Pertinent Past Medical History: Yes Neurological History: No Pertinent History ENT History: No Pertinent History Cardiac History: No Pertinent History Respiratory History: No Pertinent History Endocrine Medical History: No Pertinent History Musculoskeletal History: No Pertinent History GI Medical History: No Pertinent History History: No Pertinent History Psycho-Social History: Other Female Reproductive Disorders: No Pertinent History Other Medical History: OCD - Past Surgical History Past Surgical History: No Neuro Surgical History: No Pertinent History Cardiac: No Pertinent History Respiratory: No Pertinent History Gastrointestinal: No Pertinent History Genitourinary: No Pertinent History Musculoskeletal: No Pertinent History Female Surgical History: No Pertinent History - Social History Smoking Status: Current every day smoker Exposure to second hand smoke: No Drug Use: none Patient Lives Alone: Yes Significant Family History: no pertinent family hx - Niurka Coma Score Best Eye Response (Niurka): (4) open spontaneously Best Verbal Response (Niurka): (5) oriented Best Motor Response (Niurka): (6) obeys commands [place] Total: 15 - Physical Exam General Appearance: no apparent distress Head Injury: lacerations (1cm midline frontal scalp laceration, non bleeding), tenderness Eye Exam: bilateral eye: normal inspection, PERRL, EOMI ENT Exam: airway nml, nml ext.inspection Neck Exam: supple, trachea midline, full range of motion, normal alignment, normal inspection Mental Status Exam: alert, oriented x 3, 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 Exam: normal hearing, normal speech, PERRL, tongue midline Coordination/Gait Exam: normal gait, normal cerebellar function, negative Romberg's sign Motor/Sensory Exam: no motor deficit, no sensory deficit, no pronator drift, negative Babinski's sign Skin Exam: normal color, warm, dry SpO2 Interpretation: normal O2 Delivery: Room Air Procedures - Laceration/Wound Repair Frontal Time of Procedure: 19:45 Wound Location: head (midline scalp) Wound Length (cm): 1 Wound's Depth, Shape: superficial Wound Explored: clean Irrigated: Yes Hibiclens Prep: Yes Wound Repaired With: Dermabond Sterile Dressing Applied?: No Splint Applied?: No Sling Applied?: No - Course Nursing assessment & vital signs reviewed: Yes - Progress Progress: unchanged Progress Note: Neurologic exam within normal limits he had no issues with balance, recall, strength, sensation. Decision was made to not proceed with imaging at this time. I did advise the patient on avoiding NSAIDs for the next 72 hours. Only take Tylenol as needed for pain. Patient was encouraged to follow-up with primary care provider to evaluate for concussion symptoms. Her laceration was not bleeding at the time of evaluation, she was hesitant about fixing laceration due to anxiety so I discussed options of treatment including lizeth, sutures or glue. Patient chose to proceed with gluing the wound at this time. Counseled pt/family regarding: diagnosis, need for follow-up Medical Desision Making - Diagnostic Testing Diagnostic test were ordered, analyzed, and reviewed by me: No - Risk of complications The pt has a mod risk of morbidity or mortality based on: Need for minor surgical intervention in patient with know risk factors - Departure Departure Disposition: Home Clinical Impression: Laceration of head Condition: Good Critical Care Time: No Referrals: ELLIE PICKETT NP [Primary Care Provider] - Follow up/PCP as directed Instructions: Laceration Repair With Glue (DC), Head Injury in Adults (DC)
[2023-03-24 20:04] VITALS: O2SAT 100
[2023-03-24 20:06] VITALS: BP 128/85; PULSE 96
== END 2023-03-24 20:15 | disposition home or self-care (01) ==
LOC: ED 19:19
DX: S01.01XA Laceration without foreign body of scalp, initial encounter (principal); W22.09XA Striking against other stationary object, initial encounter; R51.9 Headache, unspecified; R11.2 Nausea with vomiting, unspecified; Z79.899 Other long term (current) drug therapy; Z72.0 Tobacco use
CPT/HCPCS: 12001; 99281

== ENCOUNTER 2023-08-28 21:24 | Emergency (ER) | payer OTHER ==
[2023-08-28 21:44] VITALS: TEMP 99; O2SAT 97
--- NOTE | 2023-08-28 22:16 | ERPHSYRPT ---
- History of Present Illness Time Seen by Provider: 08/28/23 22:00 Source: patient Exam Limitations: no limitations Patient Subjective Stated Complaint: pt states "I started cramping a couple days ago at work. I'm like 13 to 14 weeks ." Triage Nursing Assessment: pt ambulatory to bed by self with steady gait, pt alert and oriented x3, skin pwd, pt c/o L sided abd cramping since saturday, pt is 13-14 weeks , Dr. hall is patient's OB, pt denies any vaginal bleeding at this time, pt has hx of spontaeous miscarriage with previous hx, pt was seen about a month ago in ER for cramping and bleeding and was diagnosed with subchorionic hematoma at her OB about a month ago, Physician History: Patient is a 23-year-old female G3, P1 currently 13 to 14 weeks presents to our ED with abdominal cramping mostly left lower abdomen. Symptoms started a few days ago. Symptoms started after she began taking iron supplementation a few weeks ago. Patient's bowel movements frequency has decreased. Patient denies any issues related to her . No vaginal pain no discharge or complaints. Patient had a ultrasound done in her [employer] physician's office on August 13. Patient states all was well. Prior to that ultrasound she was diagnosed with a subchorionic hemorrhage which has since resolved. No trauma. No fever. No diarrhea. No rash. Patient states he is otherwise healthy. She voices no other complaints or concerns at this time. heart tones at the bedside is 160. Portions of this note were created with voice recognition technology. There may be grammatical, spelling, punctuation or sound alike errors Timing/Duration: day(s) (2 to 3 days ago) Severity: mild Modifying Factors: Improves With: nothing Associated Symptoms: denies symptoms Allergies/Adverse Reactions: No Known Drug Allergies Allergy (Verified 07/27/23 23:34) Home Medications: Iron 1 tab PO BID 08/28/23 [History] 168/Iron/Folic/Omega3 [One-A-Day -1 Softgel] 1 tab PO BID 08/28/23 [History] Hx Tetanus, Diphtheria Vaccination/Date Given: Yes Hx Influenza Vaccination/Date Given: No Hx Pneumococcal Vaccination/Date Given: No Immunizations Up to Date: No Travel Risk - International Travel Have you traveled outside of the country in past 3 weeks: No - Coronavirus Screening Are you exhibiting any of the following symptoms?: No Close contact with a COVID-19 positive Pt in past 14-21 Days: No - Vaccine Status Have you recieved a Covid-19 vaccination: No - Review of Systems Constitutional: No Symptoms, No Fever, No Chills Eyes: No Symptoms Ears, Nose, & Throat: No Symptoms Respiratory: No Symptoms, No Cough, No Dyspnea Cardiac: No Symptoms, No Chest Pain, No Edema, No Syncope Abdominal/Gastrointestinal: No Symptoms, No Abdominal Pain, No Nausea, No Vomiting, No Diarrhea Genitourinary Symptoms: No Symptoms, No Dysuria Musculoskeletal: No Symptoms, No Back Pain, No Neck Pain Skin: No Symptoms, No Rash Neurological: No Symptoms, No Dizziness, No Focal Weakness, No Sensory Changes Psychological: No Symptoms Endocrine: No Symptoms Hematologic/Lymphatic: No Symptoms Immunological/Allergic: No Symptoms All Other Systems: Reviewed and Negative - Past Medical History Pertinent Past Medical History: Yes Neurological History: Migraines ENT History: No Pertinent History Cardiac History: No Pertinent History Respiratory History: No Pertinent History Endocrine Medical History: No Pertinent History Musculoskeletal History: No Pertinent History GI Medical History: No Pertinent History History: No Pertinent History Psycho-Social History: Other Female Reproductive Disorders: No Pertinent History Other Medical History: OCD, subchorionic hematoma - Past Surgical History Past Surgical History: No Neuro Surgical History: No Pertinent History Cardiac: No Pertinent History Respiratory: No Pertinent History Gastrointestinal: No Pertinent History Genitourinary: No Pertinent History Musculoskeletal: No Pertinent History Female Surgical History: No Pertinent History - Social History Smoking Status: Former smoker How long have you smoked: occasional Exposure to second hand smoke: No Drug Use: none Patient Lives Alone: No Significant Family History: no pertinent family hx - Female History Hx Last Menstrual Period: unk Hx Now: Yes Gestational Age: 13-14 week - Nursing Vital Signs Nursing Vital Signs: Initial Vital Signs Temperature 99.0 F 08/28/23 21:43 Pulse Rate 94 H 08/28/23 21:43 Respiratory Rate 18 08/28/23 21:43 Blood Pressure 115/74 08/28/23 21:43 O2 Sat by Pulse Oximetry 97 08/28/23 21:43 Pain Scale Pain Intensity 7 - Physical Exam General Appearance: no apparent distress, alert Eye Exam: PERRL/EOMI, eyes nml inspection Neck Exam: normal inspection, full range of motion Respiratory Exam: normal breath sounds, airway intact, No respiratory distress Cardiovascular Exam: regular rate/rhythm, normal peripheral pulses Gastrointestinal/Abdomen Exam: soft, normal bowel sounds, other (Gravid abdomen), No tenderness, No mass Back Exam: normal inspection, normal range of motion, No CVA tenderness, No vertebral tenderness Extremity Exam: normal inspection, normal range of motion, pelvis stable Neurologic Exam: alert, oriented x 3, cooperative, normal mood/affect, sensation nml, No motor deficits Skin Exam: normal color, warm, dry, No rash Lymphatic Exam: No adenopathy SpO2 Interpretation: normal SpO2: 97 O2 Delivery: Room Air - Course Nursing assessment & vital signs reviewed: Yes - Progress Progress: improved Progress Note: Patient is a 23-year-old female presents to our ED for evaluation of intermittent abdominal cramping. Patient believes she is constipated. Patient states her bowel movement frequency has decreased ever since she started iron supplementation. Patient had a pelvic ultrasound in her [employer] physician's office on 13 August. Prior to that she was diagnosed with a subchorionic hemorrhage. However on the the ultrasound revealed the subchorionic hemorrhage had resolved. Patient has no vaginal discharge. No vaginal complaints. heart tones in our ED is 160. Patient considered starting MiraLAX however she was not sure whether or not this was appropriate in light of her . I contacted patient's [employer] physician . He advised telling the patient that she can take MiraLAX daily and to follow-up in his office. Patient will start taking [id number] MiraLAX per Dr. Bee suggestion. Patient otherwise feels well. No hematuria no dysuria no fever. No nausea no vomiting. Portions of this note were created with voice recognition technology. There may be grammatical, spelling, punctuation or sound alike errors Complexity of problems addressed is low acute uncomplicated No critical care time Complexity of data reviewed and analyzed is moderate no specialized testing ordered. Management established according to patient's [employer] physician commendations, Dr.Wahib Dr. Hall was consulted over the phone at time of patient's ED visit Risk of complication and or risk of morbidity/mortality of patient management is low. Patient will start [id number] MiraLAX. Vital stable. Time spent to discharge patient is approximately 10 minutes. Plan of care established for shared decision making. No social determinants of health present impede follow-up. Portions of this note were created with voice recognition technology. There may be grammatical, spelling, punctuation or sound alike errors 08/28/23 22:10 Counseled pt/family regarding: diagnosis, need for follow-up - Departure Departure Disposition: Home Clinical Impression: Constipation Condition: Stable Critical Care Time: No Referrals: TATA ZARATE NURSING STUDENT [Primary Care Provider] - Follow up/PCP as directed Additional Instructions: Discharge/Care Plan ROSS FOLEY was seen on 08/28/23 in the Emergency Room. The patient was counseled regarding Diagnosis,Lab results, Imaging studies, need for follow up and when to return to the Emergency Room. Prescriptions given: Discharge Note I have spoken with the patient and/or caregivers. I have explained the patient's condition, diagnosis and treatment plan based on the information available to me at this time. I have answered the patient's and/or caregiver's questions and addressed any concerns. The patient and/or caregivers have as good understanding of the patient's diagnosis, condition and treatment plan as can be expected at this point. The vital signs have been stable. The patient's condition is stable and appropriate for discharge from the emergency department. The patient will pursue further outpatient evaluation with the primary care physician or other designated or consulting physician as outlined in the discharge instructions. The patient and/or caregivers are agreeable to this plan of care and follow-up instructions have been explained in detail. The patient and/or caregivers have received these instruction. The patient/and or caregivers are aware that any significant change in condition or worsening of symptoms should prompt an immediate return to this or the closest emergency department or call 911.
[2023-08-28 22:22] VITALS: BP 117/67; PULSE 82; RESP 16
== END 2023-08-28 22:22 | disposition home or self-care (01) ==
LOC: ED 21:24
DX: K59.00 Constipation, unspecified (principal); R10.32 Left lower quadrant pain; Z28.310 Unvaccinated for COVID-19; Z33.1 Pregnant state, incidental
CPT/HCPCS: 99283

== ENCOUNTER 2023-09-17 00:26 | Emergency (ER) | payer OTHER ==
--- NOTE | 2023-09-17 00:43 | ERPHSYRPT ---
- History of Present Illness Time Seen by Provider: 09/17/23 00:43 Source: patient, family Exam Limitations: no limitations Physician History: This is a 23-year-old white female patient who is 17 weeks and presents with another episode of dizziness and nausea that has been persistent after episode of "hot flashes and loss of vision. Patient states she has had several of these episodes in the past during this . 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 She does not know if this contributed to her symptoms that she felt later which was lower abdominal cramping. She denies vaginal bleeding she denies vaginal discharge. She is in lay down to take a nap and have the above-stated symptoms. She stated that the loss of vision lasted "approximately 10 minutes". Patient has a history of migraine headaches. Patient denies chest pain. She denies shortness of breath. Timing/Duration: yesterday (Last evening (09/16/2023)) Severity: mild Modifying Factors: Improves With: nothing Associated Symptoms: nausea, other (Dizziness), No shortness of breath, No chest pain Allergies/Adverse Reactions: No Known Drug Allergies Allergy (Verified 07/27/23 23:34) Home Medications: Iron 1 tab PO BID 08/28/23 [History] 168/Iron/Folic/Omega3 [One-A-Day -1 Softgel] 1 tab PO BID 08/28/23 [History] Hx Tetanus, Diphtheria Vaccination/Date Given: Yes Hx Influenza Vaccination/Date Given: No Hx Pneumococcal Vaccination/Date Given: No Travel Risk - International Travel Have you traveled outside of the country in past 3 weeks: No - Coronavirus Screening Are you exhibiting any of the following symptoms?: No Close contact with a COVID-19 positive Pt in past 14-21 Days: No - Vaccine Status Have you recieved a Covid-19 vaccination: No - Review of Systems Constitutional: No Symptoms Eyes: Vision Changes Ears, Nose, & Throat: No Symptoms Respiratory: No Symptoms Cardiac: No Symptoms Abdominal/Gastrointestinal: Nausea, Appetite Changes, No Vomiting, No Diarrhea Genitourinary Symptoms: No Symptoms Musculoskeletal: No Symptoms Skin: No Symptoms Neurological: Dizziness Psychological: No Symptoms Endocrine: No Symptoms Hematologic/Lymphatic: No Symptoms Immunological/Allergic: No Symptoms All Other Systems: Reviewed and Negative - Past Medical History Pertinent Past Medical History: Yes Neurological History: Migraines ENT History: No Pertinent History Cardiac History: No Pertinent History Respiratory History: No Pertinent History Endocrine Medical History: No Pertinent History Musculoskeletal History: No Pertinent History GI Medical History: No Pertinent History History: No Pertinent History Psycho-Social History: Other Female Reproductive Disorders: No Pertinent History Other Medical History: OCD, subchorionic hematoma - Past Surgical History Past Surgical History: No Neuro Surgical History: No Pertinent History Cardiac: No Pertinent History Respiratory: No Pertinent History Gastrointestinal: No Pertinent History Genitourinary: No Pertinent History Musculoskeletal: No Pertinent History Female Surgical History: No Pertinent History - Social History Smoking Status: Former smoker How long have you smoked: occasional Exposure to second hand smoke: No Drug Use: none Patient Lives Alone: No Significant Family History: no pertinent family hx - Nursing Vital Signs Nursing Vital Signs: Initial Vital Signs Temperature 97.7 F 09/17/23 00:54 Pulse Rate 80 09/17/23 00:54 Respiratory Rate 16 09/17/23 00:54 Blood Pressure 113/69 09/17/23 00:54 O2 Sat by Pulse Oximetry 100 09/17/23 00:54 Pain Scale Pain Intensity 0 - Physical Exam General Appearance: no apparent distress, alert, anxiety, thin Eye Exam: PERRL/EOMI, eyes nml inspection Ears, Nose, Throat Exam: normal ENT inspection, moist mucous membranes Neck Exam: normal inspection, non-tender, supple, full range of motion Respiratory Exam: normal breath sounds, lungs clear, airway intact, No chest tenderness, No respiratory distress Cardiovascular Exam: regular rate/rhythm, normal heart sounds, normal peripheral pulses Gastrointestinal/Abdomen Exam: soft, normal bowel sounds, No tenderness Pelvic Exam: not done Rectal Exam: not done Back Exam: normal inspection, normal range of motion, No CVA tenderness Extremity Exam: normal inspection, normal range of motion, pelvis stable Neurologic Exam: alert, oriented x 3, cooperative, 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 tested, normal mood/affect, nml cerebellar function, nml station & gait, sensation nml Skin Exam: normal color, warm, dry Lymphatic Exam: No adenopathy SpO2 Interpretation: normal O2 Delivery: Room Air - Course Nursing assessment & vital signs reviewed: Yes Ordered Tests: Active Orders 24 hr Category Date Time Status EKG-ER Only STAT Care 09/17/23 00:43 Active IV Insertion STAT Care 09/17/23 00:43 Active CBC W DIFF Stat Lab 09/17/23 00:43 Completed CMP Stat Lab 09/17/23 01:30 Completed CULTURE,URINE Stat Lab 09/17/23 00:53 Received MONO SCREEN Stat Lab 09/17/23 01:30 Completed UA W/RFX UR CULTURE Stat Lab 09/17/23 00:53 Completed Medication Summary Generic Name Dose Route Start Last Admin Trade Name Freq PRN Reason Stop Dose Admin Ceftriaxone Sodium/Dextrose 1 g in 50 mls @ 100 mls/hr 09/17/23 02:06 Rocephin 1 Gm-D5w 50 Ml Bag IV 09/17/23 02:35 STAT STA Discontinued Medications Generic Name Dose Route Start Last Admin Trade Name Freq PRN Reason Stop Dose Admin Sodium Chloride 1,000 mls @ 999 mls/hr 09/17/23 00:43 09/17/23 01:46 Sodium Chloride 0.9% 1000 Ml IV 09/17/23 01:43 999 mls/hr .Q1H1M STA Administration Sodium Chloride Confirm 09/17/23 01:20 Sodium Chloride 0.9% 1000 Ml Administered 09/17/23 01:21 Dose 1,000 mls @ ud .ROUTE .STK-MED ONE Ondansetron HCl 4 mg 09/17/23 02:01 Ondansetron Hcl 4 Mg/2 Ml Vial IV 09/17/23 02:02 STAT ONE Ondansetron HCl Confirm 09/17/23 02:04 Ondansetron Hcl 4 Mg/2 Ml Vial Administered 09/17/23 02:05 Dose 4 mg .ROUTE .STK-MED ONE Lab/Rad Data: Laboratory Result Diagrams 09/17/23 00:43 09/17/23 01:30 Laboratory Results 09/17/23 09/17/23 09/17/23 Range/Units 01:30 01:30 00:53 WBC (4.0-10.5) x10^3/uL RBC (4.1-5.4) x10^6/uL Hgb (12.0-16.0) g/dL Hct (35-47) % MCV (78-100) fL MCH (26-32) pg MCHC (32-36) g/dL RDW (11.5-14.0) % Plt Count (150-450) x10^3/uL MPV (7.5-11.0) fL Gran % (36.0-66.0) % Immature Gran % (Auto) (0.00-0.4) % Nucleat RBC Rel Count (0.00-0.1) % Eos # (Auto) (0-0.5) x10^3/uL Immature Gran # (Auto) (0.00-0.03) x10^3u/L Absolute Lymphs (auto) (1.0-4.6) x10^3/uL Absolute Monos (auto) (0.0-1.3) x10^3/uL Absolute Nucleated RBC (0.00-0.01) x10^3u/L Lymphocytes % (24.0-44.0) % Monocytes % (0.0-12.0) % Eosinophils % (0.00-5.0) % Basophils % (0.0-0.4) % Absolute Granulocytes (1.4-6.9) x10^3/uL Basophils # (0-0.4) x10^3/uL Sodium 134 L (137-145) mmol/L Potassium 3.6 (3.5-5.1) mmol/L Chloride 105 (98-107) mmol/L Carbon Dioxide 22 (22-30) mmol/L Anion Gap 11.0 (5-15) MEQ/L BUN 10 (7-17) mg/dL Creatinine 0.33 L (0.52-1.04) mg/dL Estimated GFR 149.3 ML/MIN Glucose 77 (74-106) mg/dL Calcium 8.2 L (8.4-10.2) mg/dL Total Bilirubin 0.10 L (0.2-1.3) mg/dL AST 23 (14-36) U/L ALT 17 (0-35) U/L Alkaline Phosphatase 33 L (38-126) U/L Serum Total Protein 6.4 (6.3-8.2) g/dL Albumin 3.5 (3.5-5.0) g/dL Urine Color Yellow (Yellow) Urine Appearance Cloudy A (Clear) Urine pH 7.0 (4.6-8.0) Ur Specific Finley 1.015 (1.005-1.030) Urine Protein Negative (Negative) Urine Glucose (UA) Negative (Negative) mg/dL Urine Ketones Negative (Negative) Urine Blood Negative (Negative) Urine Nitrite Negative (Negative) Urine Bilirubin Negative (Negative) Urine Urobilinogen 0.2 (0.2) mg/dL Ur Leukocyte Esterase Moderate A (Negative) U Hyaline Cast (Auto) NONE SEEN (0-2) /LPF Urine Microscopic RBC 3-5 (0-5) /HPF Urine Microscopic WBC 21-50 A (0-5) /HPF Ur Epithelial Cells Many A (None Seen) /HPF Urine Bacteria Moderate A (None Seen) /HPF Urine Yeast (Budding) (None Seen) /HPF Urine Culture Reflexed YES (NO) Monoscreen NEGATIVE (NEGATIVE) Influenza Type A Ag (NEGATIVE) Influenza Type B Ag (NEGATIVE) RSV (PCR) (NEGATIVE) SARS-CoV-2 (PCR) (NEGATIVE) 09/17/23 09/17/23 Range/Units 00:45 00:43 WBC 9.3 (4.0-10.5) x10^3/uL RBC 3.27 L (4.1-5.4) x10^6/uL Hgb 10.1 L (12.0-16.0) g/dL Hct 30.1 L (35-47) % MCV 92.0 (78-100) fL MCH 30.9 (26-32) pg MCHC 33.6 (32-36) g/dL RDW 12.1 (11.5-14.0) % Plt Count 203 (150-450) x10^3/uL MPV 10.3 (7.5-11.0) fL Gran % 74.0 H (36.0-66.0) % Immature Gran % (Auto) 0.3 (0.00-0.4) % Nucleat RBC Rel Count 0.0 (0.00-0.1) % Eos # (Auto) 0.08 (0-0.5) x10^3/uL Immature Gran # (Auto) 0.03 (0.00-0.03) x10^3u/L Absolute Lymphs (auto) 1.60 (1.0-4.6) x10^3/uL Absolute Monos (auto) 0.68 (0.0-1.3) x10^3/uL Absolute Nucleated RBC 0.00 (0.00-0.01) x10^3u/L Lymphocytes % 17.2 L (24.0-44.0) % Monocytes % 7.3 (0.0-12.0) % Eosinophils % 0.9 (0.00-5.0) % Basophils % 0.3 (0.0-0.4) % Absolute Granulocytes 6.90 (1.4-6.9) x10^3/uL Basophils # 0.03 (0-0.4) x10^3/uL Sodium (137-145) mmol/L Potassium (3.5-5.1) mmol/L Chloride (98-107) mmol/L Carbon Dioxide (22-30) mmol/L Anion Gap (5-15) MEQ/L BUN (7-17) mg/dL Creatinine (0.52-1.04) mg/dL Estimated GFR ML/MIN Glucose (74-106) mg/dL Calcium (8.4-10.2) mg/dL Total Bilirubin (0.2-1.3) mg/dL AST (14-36) U/L ALT (0-35) U/L Alkaline Phosphatase (38-126) U/L Serum Total Protein (6.3-8.2) g/dL Albumin (3.5-5.0) g/dL Urine Color (Yellow) Urine Appearance (Clear) Urine pH (4.6-8.0) Ur Specific Finley (1.005-1.030) Urine Protein (Negative) Urine Glucose (UA) (Negative) mg/dL Urine Ketones (Negative) Urine Blood (Negative) Urine Nitrite (Negative) Urine Bilirubin (Negative) Urine Urobilinogen (0.2) mg/dL Ur Leukocyte Esterase (Negative) U Hyaline Cast (Auto) (0-2) /LPF Urine Microscopic RBC (0-5) /HPF Urine Microscopic WBC (0-5) /HPF Ur Epithelial Cells (None Seen) /HPF Urine Bacteria (None Seen) /HPF Urine Yeast (Budding) (None Seen) /HPF Urine Culture Reflexed (NO) Monoscreen (NEGATIVE) Influenza Type A Ag NEGATIVE (NEGATIVE) Influenza Type B Ag NEGATIVE (NEGATIVE) RSV (PCR) NEGATIVE (NEGATIVE) SARS-CoV-2 (PCR) NEGATIVE (NEGATIVE) - Progress Progress: improved, pain not gone completely Progress Note: 09/17/23 02:14 This patient's medical issues 1 of moderate complexity. Level complex in the work-up performed is based on review the patient's past medical history, review the patient's medication list, reviewed patient's drug allergy list, history present of some physical findings on examination. Work-up in this patient includes placement of intravenous line, infusion of 1 L Normal Saline solution, urinalysis, CBC, CMP and twelve-lead EKG. We also ordered viral swabs. I interpreted the lab results. She has no acute or emergent medical issue at this time other than a urinary tract infection during . I did offer the patient a CT scan of the head. The nurse also asked the patient if she wanted to reconsider CAT scan of the head. We told her we could shield her abdomen during the CAT scan of the head study. Patient is adamant that she does not want any radiation therapy. She is refusing the CAT scan of the head without contrast. The urinary tract infection could be the reason she has today symptoms. I cannot explain her prior symptoms of "blacking out or loss of vision". Counseled pt/family regarding: lab results, diagnosis, need for follow-up Medical Desision Making - Diagnostic Testing Diagnostic test were ordered, analyzed, and reviewed by me: Yes - Risk of complications The pt has a mod risk of morbidity or mortality based on: Need for prescription drug management - Departure Departure Disposition: Home Clinical Impression: Urinary tract infection during Condition: Stable Critical Care Time: No Additional Instructions: Drink plenty fluids. Take your medication as prescribed. Call your primary care provider and superintendent refuse disposal later today, 09/17/2023, for further evaluation management. Prescriptions: Ondansetron ODT 4 MG [Zofran Odt 4 mg] 4 mg PO Q6H PRN PRN #10 tablet PRN Reason: Vomiting Cephalexin Mh 500 mg [Keflex 500 mg] 500 mg PO TID #21 cap
[2023-09-17 01:04] VITALS: RESP 16; TEMP 97.7
[2023-09-17] MEDS ORDERED: Sodium Chloride 0.9% 1000 ML 1,000 ML ONE (01:20)
[2023-09-17 01:27] LABS: Appearance Cloudy (Clear); Bilirubin Negative (Negative); Blood Negative (Negative); Epithelial Cells Many /HPF (None Seen); Glucose, Urine Negative (Negative); Hyaline Casts NONE SEEN /LPF (0-2); Ketones Negative (Negative); Leukocyte Esterase Moderate (Negative); Nitrite Negative (Negative); Protein,Urine Dip Negative (Negative); Specific Gravity 1.015 (1.005-1.030); Urobilinogen 0.2 mg/dL (0.2); WBC 21-50 /HPF (0-5)
[2023-09-17 01:28] LABS: ADD URINE CULTURE? YES (NO); Bacteria Moderate /HPF (None Seen)
[2023-09-17 01:33] LABS: BASOPHIL % 0.3 % (0.0-0.4); Basophil (Absolute #) 0.03 x10^3/uL (0-0.4); Eosinophil % 0.9 % (0.00-5.0); Eosinophil (Absolute #) 0.08 x10^3/uL (0-0.5); Hematocrit 30.1 % (35-47); Hemoglobin 10.1 g/dL (12.0-16.0); IMMATURE GRAN # 0.03 x10^3u/L (0.00-0.03); IMMATURE GRAN % 0.3 % (0.00-0.4); Lymphocytes % 17.2 % (24.0-44.0); Mean Corpuscular Hemoglobin 30.9 pg (26-32); Mean Corpuscular Hgb Concent. 33.6 g/dL (32-36); Mean Platelet Volume 10.3 fL (7.5-11.0); Monocyte (Absolute #) 0.68 x10^3/uL (0.0-1.3); Monocytes % 7.3 % (0.0-12.0); Platelet Count 203 x10^3/uL (150-450); Red Blood Count 3.27 x10^6/uL (4.1-5.4); Red Cell Distribution Width 12.1 % (11.5-14.0); White Blood Count 9.3 x10^3/uL (4.0-10.5)
[2023-09-17 01:38] LABS: INFLUENZA A NEGATIVE (NEGATIVE); INFLUENZA B NEGATIVE (NEGATIVE); RESPIRATORY SYNCTIAL VIRUS NEGATIVE (NEGATIVE); SARS-CoV-2 Xpert Express NEGATIVE (NEGATIVE)
[2023-09-17 01:40] VITALS: O2SAT 99
[2023-09-17] MEDS: Sodium Chloride 0.9% 1000 ML 1,000 ML IV STA (01:46)
[2023-09-17 01:47] LABS: ALBUMIN 3.5 g/dL (3.5-5.0); BILIRUBIN,TOTAL 0.1 mg/dL (0.2-1.3); Calcium 8.2 mg/dL (8.4-10.2); Creatinine 1 0.33 mg/dL (0.52-1.04); EST GLOMERULAR FILTRATION RATE 149.3 ML/MIN; Potassium 3.6 mmol/L (3.5-5.1); Total Protein 6.4 g/dL (6.3-8.2)
[2023-09-17] MEDS ORDERED: Zofran 4 MG/2 ML VIAL ONE (02:04)
[2023-09-17] MEDS: Zofran 4 MG/2 ML VIAL IV ONE (02:10)
[2023-09-17] MEDS ORDERED: ROCEPHIN 1 Gm-D5w 50 ml Bag** 1 G/50 ML IVPB IV ONE (02:13)
[2023-09-17] MEDS: ROCEPHIN 1 Gm-D5w 50 ml Bag** 1 G/50 ML IVPB IV STA (02:16)
[2023-09-17 03:12] VITALS: BP 97/48; PULSE 71
== END 2023-09-17 03:10 | disposition home or self-care (01) ==
LOC: ED 00:26
DX: O23.42 Unspecified infection of urinary tract in pregnancy, second trimester (principal); N39.0 Urinary tract infection, site not specified; Z3A.17 17 weeks gestation of pregnancy; R42 Dizziness and giddiness; R11.0 Nausea; H53.123 Transient visual loss, bilateral; Z28.310 Unvaccinated for COVID-19
CPT/HCPCS: 0241U; 36000; 36415; 80053; 81001; 85025; 86308; 87086; 93005; 96360; 96365; 96374; 99284; J0696; J2405

== ENCOUNTER 2023-09-28 12:51 | Emergency (ER) | payer OTHER ==
--- NOTE | 2023-09-28 12:56 | ERPHSYRPT ---
- History of Present Illness Time Seen by Provider: 09/28/23 12:55 Source: patient Exam Limitations: no limitations Physician History: This is a 23-year-old white female who is approximately 19 weeks who presents with bodyaches that began on 09/27/2023. Patient was seen by me in this emergency department for dizziness symptoms. She was found to have a moderate urinary tract infection and was treated with Keflex. At that time her Monospot test and viral swabs were negative. She has associated rhinorrhea. The drainage is clear. She denies cough. She denies shortness of breath. She denies chest pain. Patient has a history of OCD and chronic, recurring migraine headaches. Patient states she does not feel as though she needs an IV line placed. Patient states that up until today she has been taking adequate amounts of oral intake and liquids. She has not had any vomiting or diarrhea. Timing/Duration: yesterday Cough Quality/Degree: no cough Possible Cause: no prior episodes Modifying Factors: Improves With: activity Associated Symptoms: fever (Low-grade), muscle aches, nasal drainage (We are), No chest pain/soreness, No cough, No lightheadedness, No shortness of breath Allergies/Adverse Reactions: olives Allergy (Severe, Uncoded 09/28/23 13:08) Difficulty Breathing Home Medications: 168/Iron/Folic/Omega3 [One-A-Day -1 Softgel] 2 tab PO DAILY 08/28/23 [History] Hx Tetanus, Diphtheria Vaccination/Date Given: Yes Hx Influenza Vaccination/Date Given: No Hx Pneumococcal Vaccination/Date Given: No Travel Risk - International Travel Have you traveled outside of the country in past 3 weeks: No - Coronavirus Screening Are you exhibiting any of the following symptoms?: Yes Symptoms: Headaches/Body Aches/Fatigue Close contact with a COVID-19 positive Pt in past 14-21 Days: No - Vaccine Status Have you recieved a Covid-19 vaccination: No - Review of Systems Constitutional: No Symptoms Eyes: No Symptoms Ears, Nose, & Throat: Nose Discharge (Clear) Respiratory: No Symptoms Cardiac: No Symptoms Abdominal/Gastrointestinal: No Symptoms Genitourinary Symptoms: No Symptoms Musculoskeletal: Arthralgias, Myalgias Skin: No Symptoms Neurological: No Symptoms Psychological: No Symptoms Endocrine: No Symptoms Hematologic/Lymphatic: No Symptoms Immunological/Allergic: No Symptoms All Other Systems: Reviewed and Negative - Past Medical History Pertinent Past Medical History: Yes Neurological History: Migraines ENT History: No Pertinent History Cardiac History: No Pertinent History Respiratory History: No Pertinent History Endocrine Medical History: No Pertinent History Musculoskeletal History: No Pertinent History GI Medical History: No Pertinent History History: No Pertinent History Psycho-Social History: Other Female Reproductive Disorders: No Pertinent History Other Medical History: OCD, subchorionic hematoma - Past Surgical History Past Surgical History: No Neuro Surgical History: No Pertinent History Cardiac: No Pertinent History Respiratory: No Pertinent History Gastrointestinal: No Pertinent History Genitourinary: No Pertinent History Musculoskeletal: No Pertinent History Female Surgical History: No Pertinent History - Social History Smoking Status: Former smoker How long have you smoked: occasional Exposure to second hand smoke: No Drug Use: none Patient Lives Alone: No Significant Family History: no pertinent family hx - Nursing Vital Signs Nursing Vital Signs: Initial Vital Signs Temperature 99.8 F 09/28/23 12:52 Pulse Rate 110 H 09/28/23 12:52 Respiratory Rate 19 09/28/23 12:52 Blood Pressure 95/74 09/28/23 12:52 O2 Sat by Pulse Oximetry 99 09/28/23 12:52 Pain Scale Pain Intensity [Entire body 8 aches] Pain Intensity 8 - Physical Exam General Appearance: no apparent distress, alert, anxiety, thin Eye Exam: PERRL/EOMI, eyes nml inspection Ears, Nose, Throat Exam: normal ENT inspection, moist mucous membranes Neck Exam: normal inspection, non-tender, supple, full range of motion Respiratory Exam: normal breath sounds, lungs clear, airway intact, No chest tenderness, No respiratory distress Cardiovascular Exam: tachycardia Gastrointestinal/Abdomen Exam: soft, normal bowel sounds, No tenderness Pelvic Exam: not done Rectal Exam: not done Back Exam: normal inspection, normal range of motion, No CVA tenderness, No vertebral tenderness Extremity Exam: normal inspection, normal range of motion, pelvis stable Neurologic Exam: alert, oriented x 3, 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, 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, normal mood/affect, nml cerebellar function, nml station & gait, sensation nml Skin Exam: normal color, warm, dry Lymphatic Exam: No adenopathy SpO2 Interpretation: normal O2 Delivery: Room Air - Course Nursing assessment & vital signs reviewed: Yes Ordered Tests: Active Orders 24 hr Category Date Time Status MONO SCREEN Stat Lab 09/28/23 13:46 Completed Medication Summary Discontinued Medications Generic Name Dose Route Start Last Admin Trade Name Jose Juan PRN Reason Stop Dose Admin Acetaminophen 650 mg 09/28/23 13:18 09/28/23 13:29 Acetaminophen 325 Mg Tablet PO 09/28/23 13:19 650 mg STAT ONE Administration Acetaminophen Confirm 09/28/23 13:27 Acetaminophen 325 Mg Tablet Administered 09/28/23 13:28 Dose 650 mg .ROUTE .STK-MED ONE Lab/Rad Data: Laboratory Results 09/28/23 09/28/23 Range/Units 13:46 13:20 Monoscreen NEGATIVE (NEGATIVE) Influenza Type A Ag NEGATIVE (NEGATIVE) Influenza Type B Ag NEGATIVE (NEGATIVE) RSV (PCR) NEGATIVE (NEGATIVE) SARS-CoV-2 (PCR) POSITIVE A (NEGATIVE) Group A Strep Antibody NOT DETECTED (NEGATIVE) - Progress Progress: improved, re-examined Air Movement: good Progress Note: 09/28/23 14:08 This patient's medical issue is 1 of low complexity. Level complex in the workup performed is based on review the patient's past medical history, review the patient's medication list, review the patient's drug allergy list, history present illness and physical findings on examination. This patient has a low- grade fever. We provided her with 650 mg of oral Tylenol. We also obtained mono screen and viral studies. Medical Desision Making - Diagnostic Testing Diagnostic test were ordered, analyzed, and reviewed by me: Yes - Risk of complications Minimal Risk: Minimal risk of morbidity - Departure Departure Disposition: Home Clinical Impression: COVID-19 virus infection, Fever Condition: Stable Critical Care Time: No Referrals: DOCTOR,NO FAMILY [Primary Care Provider] - Follow up/PCP as directed Additional Instructions: Drink plenty of fluids. Take Tylenol every 4 hours while awake not to exceed 4 g in a 24-hour period.
[2023-09-28] MEDS ORDERED: TYLENOL 325 MG PO ONE (13:18)
[2023-09-28] MEDS ORDERED: TYLENOL 325 MG ONE (13:27)
[2023-09-28 13:53] LABS: Group A Strep NOT DETECTED (NEGATIVE)
[2023-09-28 14:06] LABS: INFLUENZA A NEGATIVE (NEGATIVE); INFLUENZA B NEGATIVE (NEGATIVE); RESPIRATORY SYNCTIAL VIRUS NEGATIVE (NEGATIVE)
[2023-09-28 14:24] LABS: SARS-CoV-2 Xpert Express POSITIVE (NEGATIVE)
[2023-09-28 14:33] VITALS: TEMP 98.4
[2023-09-28 14:42] VITALS: BP 102/52; PULSE 84; RESP 16; O2SAT 98
== END 2023-09-28 14:46 | disposition home or self-care (01) ==
LOC: ED 12:51
DX: O98.512 Other viral diseases complicating pregnancy, second trimester (principal); U07.1 COVID-19; Z3A.19 19 weeks gestation of pregnancy; M79.10 Myalgia, unspecified site; Z28.310 Unvaccinated for COVID-19
CPT/HCPCS: 0241U; 36415; 86308; 87651; 99283; A9270-GY

== ENCOUNTER 2023-11-08 10:49 | Observation (INO) | payer OTHER ==
[2023-11-08 11:49] VITALS: BP 107/59; PULSE 85; RESP 18; TEMP 98.2; O2SAT 98
== END 2023-11-08 12:25 | disposition home or self-care (01) ==
LOC: MED SURG 10:49
PROVIDERS: ADMIT Obstetrics & Gynecology; ATTEND Obstetrics & Gynecology
DX: Z34.82 Encounter for supervision of other normal pregnancy, second trimester (principal); Z3A.24 24 weeks gestation of pregnancy
CPT/HCPCS: 99213; G0378; G0379

== ENCOUNTER 2023-11-14 16:48 | Observation (INO) | payer OTHER ==
[2023-11-14 17:21] VITALS: BP 138/67; PULSE 97; RESP 18; TEMP 97.2; O2SAT 98
== END 2023-11-14 18:00 | disposition home or self-care (01) ==
LOC: OB 16:48
PROVIDERS: ADMIT Family Medicine; ATTEND Family Medicine
DX: Z34.82 Encounter for supervision of other normal pregnancy, second trimester (principal); Z3A.25 25 weeks gestation of pregnancy; F17.200 Nicotine dependence, unspecified, uncomplicated

== ENCOUNTER 2023-11-14 18:03 | Emergency (ER) | payer OTHER ==
[2023-11-14 18:39] LABS: Absolute Neutrophil Ct (ANC) 4.61 x10^3/uL (1.4-6.9); BASOPHIL % 0.3 % (0.0-0.4); Basophil (Absolute #) 0.02 x10^3/uL (0-0.4); Eosinophil % 1.3 % (0.00-5.0); Eosinophil (Absolute #) 0.09 x10^3/uL (0-0.5); Hematocrit 30.2 % (35-47); Hemoglobin 9.8 g/dL (12.0-16.0); IMMATURE GRAN # 0.02 x10^3u/L (0.00-0.03); IMMATURE GRAN % 0.3 % (0.00-0.4); Lymphocyte (Absolute #) 1.47 x10^3/uL (1.0-4.6); Mean Cell Volume 93.5 fL (78-100); Mean Corpuscular Hemoglobin 30.3 pg (26-32); Mean Corpuscular Hgb Concent. 32.5 g/dL (32-36); Mean Platelet Volume 10.5 fL (7.5-11.0); Monocyte (Absolute #) 0.48 x10^3/uL (0.0-1.3); Monocytes % 7.2 % (0.0-12.0); Neutrophil % 68.9 % (36.0-66.0); Platelet Count 233 x10^3/uL (150-450); Red Blood Count 3.23 x10^6/uL (4.1-5.4); Red Cell Distribution Width 12.8 % (11.5-14.0); White Blood Count 6.7 x10^3/uL (4.0-10.5)
[2023-11-14 18:45] VITALS: RESP 16; TEMP 98.4
[2023-11-14 18:47] LABS: ALBUMIN 3.4 g/dL (3.5-5.0); ANION GAP 9.1 MEQ/L (5-15); BILIRUBIN,TOTAL 0.3 mg/dL (0.2-1.3); Calcium 8.6 mg/dL (8.4-10.2); Creatinine 1 0.38 mg/dL (0.52-1.04); EST GLOMERULAR FILTRATION RATE 144.3 ML/MIN; MAGNESIUM 1.6 mg/dL (1.6-2.3); Potassium 3.8 mmol/L (3.5-5.1); Total Protein 6.3 g/dL (6.3-8.2)
[2023-11-14] MEDS ORDERED: Sodium Chloride 0.9% 1000 ML 1,000 ML ONE (19:15)
[2023-11-14] MEDS ORDERED: Sodium Chloride 0.9% 1000 ML 1,000 ML IV STA (19:15)
[2023-11-14 19:20] LABS: INFLUENZA A NEGATIVE (NEGATIVE); INFLUENZA B NEGATIVE (NEGATIVE); RESPIRATORY SYNCTIAL VIRUS NEGATIVE (NEGATIVE); SARS-CoV-2 Xpert Express NEGATIVE (NEGATIVE)
[2023-11-14] MEDS ORDERED: ANTIVERT 25 MG PO ONE (20:43)
[2023-11-14] MEDS ORDERED: ANTIVERT 25 MG ONE (20:46)
[2023-11-14 20:47] LABS: ADD URINE CULTURE? YES (NO); Appearance Cloudy (Clear); Bacteria Many /HPF (None Seen); Bilirubin Negative (Negative); Blood Negative (Negative); Epithelial Cells Many /HPF (None Seen); Glucose, Urine Negative (Negative); Hyaline Casts NONE SEEN /LPF (0-2); Ketones Negative (Negative); Leukocyte Esterase Moderate (Negative); Nitrite Negative (Negative); Protein,Urine Dip Negative (Negative); Urobilinogen 0.2 mg/dL (0.2)
--- NOTE | 2023-11-14 20:51 | ERPHSYRPT ---
- History of Present Illness Time Seen by Provider: 11/14/23 18:19 Source: patient Exam Limitations: no limitations Patient Subjective Stated Complaint: pt states that she has been having dizziness for the past 2 months Triage Nursing Assessment: pt ambulated into the er; pt is axo x4; c/o dizziness; pt has flat affect; pt denies headache; pt denies N/V/D; pupils 3 mm and PERRL; pt is 25 week ; skin PDW; no respiratory distress; ortho s tatic done during assessment; vitals wnl Physician History: 23 years old female 3 para 1 at 25 weeks gestation presented in the ER with complaints of dizziness off and on for the last 2 months. Patient reports she has been having off-and-on dizziness since the start of this but 2 months ago she got COVID and since then her symptoms are getting worse. Patient reports she gets blurry vision mostly with standing and sometimes with sitting as well along with generalized weakness fatigue and tiredness. It gets better with sitting/resting for a little while. Denies any associated chest pain palpitations or shortness of breath. No associated numbness tingling or focal weakness reported. Denies any vaginal bleeding, pelvic cramping, good mov ements as usual. Allergies/Adverse Reactions: olives Allergy (Severe, Uncoded 11/14/23 18:14) Difficulty Breathing Home Medications: 168/Iron/Folic/Omega3 [One-A-Day -1 Softgel] 2 tab PO DAILY 08/28/23 [History] Hx Tetanus, Diphtheria Vaccination/Date Given: Yes Hx Influenza Vaccination/Date Given: No Hx Pneumococcal Vaccination/Date Given: No Immunizations Up to Date: No Travel Risk - International Travel Have you traveled outside of the country in past 3 weeks: No - Coronavirus Screening Are you exhibiting any of the following symptoms?: No Close contact with a COVID-19 positive Pt in past 14-21 Days: No - Vaccine Status Have you recieved a Covid-19 vaccination: No - Review of Systems Constitutional: Fatigue, Weakness Eyes: No Symptoms Ears, Nose, & Throat: No Symptoms Respiratory: No Symptoms Cardiac: No Symptoms Abdominal/Gastrointestinal: No Symptoms Genitourinary Symptoms: Musculoskeletal: No Symptoms Skin: No Symptoms Neurological: Dizziness Psychological: No Symptoms Endocrine: No Symptoms Hematologic/Lymphatic: No Symptoms Immunological/Allergic: No Symptoms - Past Medical History Pertinent Past Medical History: Yes Neurological History: Migraines ENT History: No Pertinent History Cardiac History: No Pertinent History Respiratory History: No Pertinent History Endocrine Medical History: No Pertinent History Musculoskeletal History: No Pertinent History GI Medical History: No Pertinent History History: No Pertinent History Psycho-Social History: Other Female Reproductive Disorders: No Pertinent History Other Medical History: OCD, subchorionic hematoma - Past Surgical History Past Surgical History: No Neuro Surgical History: No Pertinent History Cardiac: No Pertinent History Respiratory: No Pertinent History Gastrointestinal: No Pertinent History Genitourinary: No Pertinent History Musculoskeletal: No Pertinent History Female Surgical History: No Pertinent History - Social History Smoking Status: Current every day smoker How long have you smoked: 5 years Exposure to second hand smoke: No Drug Use: none Patient Lives Alone: No Significant Family History: no pertinent family hx - Female History Hx Now: Yes Gestational Age: 25 weeks - Nursing Vital Signs Nursing Vital Signs: Initial Vital Signs Temperature 98.4 F 11/14/23 18:16 Pulse Rate 80 11/14/23 18:16 Respiratory Rate 16 11/14/23 18:16 Blood Pressure 107/51 11/14/23 18:16 O2 Sat by Pulse Oximetry 100 11/14/23 18:16 Pain Scale Pain Intensity 0 - Physical Exam General Appearance: no apparent distress, alert, anxiety Eye Exam: PERRL/EOMI Ears, Nose, Throat Exam: normal ENT inspection Neck Exam: normal inspection, non-tender, supple, full range of motion Respiratory Exam: normal breath sounds, lungs clear Cardiovascular Exam: regular rate/rhythm, normal heart sounds Gastrointestinal/Abdomen Exam: soft, normal bowel sounds, No tenderness Extremity Exam: normal inspection, normal range of motion Neurologic Exam: alert, oriented x 3, 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, 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, nml cerebellar function, nml station & gait, sensation nml, No normal mood/affect, No motor deficits Skin Exam: normal color SpO2 Interpretation: normal SpO2: 98 O2 Delivery: Room Air - Course EKG Interpreted by Me: RATE (75), Sinus Rhythm, NORMAL AXIS, NORMAL INTERVALS, NORMAL QRS Ordered Tests: Active Orders 24 hr Category Date Time Status EKG-ER Only STAT Care 11/14/23 18:33 Active IV Insertion STAT Care 11/14/23 18:33 Active CBC W DIFF Stat Lab 11/14/23 18:20 Completed CMP Stat Lab 11/14/23 18:20 Completed CULTURE,URINE Stat Lab 11/14/23 20:24 Received MAGNESIUM Stat Lab 11/14/23 18:20 Completed TROPONIN Q3H Lab 11/14/23 20:45 Completed TROPONIN Q3H Lab 11/14/23 23:45 Ordered TROPONIN Q3H Lab 11/15/23 02:45 Ordered TROPONIN Q3H Lab 11/15/23 05:45 Ordered UA W/RFX UR CULTURE Stat Lab 11/14/23 20:24 Completed Medication Summary Discontinued Medications Generic Name Dose Route Start Last Admin Trade Name Freq PRN Reason Stop Dose Admin Cephalexin HCl 500 mg 11/14/23 21:03 11/14/23 21:08 Cephalexin Mh500 Mg Capsule PO 11/14/23 21:04 500 mg STAT ONE Administration Cephalexin HCl Confirm 11/14/23 21:06 Cephalexin Mh500 Mg Capsule Administered 11/14/23 21:07 Dose 500 mg .ROUTE .STK-MED ONE Sodium Chloride 1,000 mls @ 999 mls/hr 11/14/23 19:15 11/14/23 20:19 Sodium Chloride 0.9% 1000 Ml IV 11/14/23 20:15 Infused .Q1H1M STA Infusion Sodium Chloride Confirm 11/14/23 19:15 Sodium Chloride 0.9% 1000 Ml Administered 11/14/23 19:16 Dose 1,000 mls @ ud .ROUTE .STK-MED ONE Meclizine HCl 25 mg 11/14/23 20:43 11/14/23 20:47 Meclizine Hcl 25 Mg Tablet PO 11/14/23 20:44 25 mg STAT ONE Administration Meclizine HCl Confirm 11/14/23 20:46 Meclizine Hcl 25 Mg Tablet Administered 11/14/23 20:47 Dose 25 mg .ROUTE .STK-MED ONE Lab/Rad Data: Laboratory Result Diagrams 11/14/23 18:20 11/14/23 18:20 Laboratory Results 11/14/23 11/14/23 11/14/23 Range/Units 20:45 20:24 18:40 WBC (4.0-10.5) x10^3/uL RBC (4.1-5.4) x10^6/uL Hgb (12.0-16.0) g/dL Hct (35-47) % MCV (78-100) fL MCH (26-32) pg MCHC (32-36) g/dL RDW (11.5-14.0) % Plt Count (150-450) x10^3/uL MPV (7.5-11.0) fL Gran % (36.0-66.0) % Immature Gran % (Auto) (0.00-0.4) % Nucleat RBC Rel Count (0.00-0.1) % Eos # (Auto) (0-0.5) x10^3/uL Immature Gran # (Auto) (0.00-0.03) x10^3u/L Absolute Lymphs (auto) (1.0-4.6) x10^3/uL Absolute Monos (auto) (0.0-1.3) x10^3/uL Absolute Nucleated RBC (0.00-0.01) x10^3u/L Lymphocytes % (24.0-44.0) % Monocytes % (0.0-12.0) % Eosinophils % (0.00-5.0) % Basophils % (0.0-0.4) % Absolute Granulocytes (1.4-6.9) x10^3/uL Basophils # (0-0.4) x10^3/uL Sodium (137-145) mmol/L Potassium (3.5-5.1) mmol/L Chloride (98-107) mmol/L Carbon Dioxide (22-30) mmol/L Anion Gap (5-15) MEQ/L BUN (7-17) mg/dL Creatinine (0.52-1.04) mg/dL Estimated GFR ML/MIN Glucose (74-106) mg/dL Calcium (8.4-10.2) mg/dL Magnesium (1.6-2.3) mg/dL Total Bilirubin (0.2-1.3) mg/dL AST (14-36) U/L ALT (0-35) U/L Alkaline Phosphatase (38-126) U/L Troponin I < 0.012 (0.000-0.034) ng/mL Serum Total Protein (6.3-8.2) g/dL Albumin (3.5-5.0) g/dL Urine Color Yellow (Yellow) Urine Appearance Cloudy A (Clear) Urine pH 7.0 (4.6-8.0) Ur Specific [place] 1.020 (1.005-1.030) Urine Protein Negative (Negative) Urine Glucose (UA) Negative (Negative) mg/dL Urine Ketones Negative (Negative) Urine Blood Negative (Negative) Urine Nitrite Negative (Negative) Urine Bilirubin Negative (Negative) Urine Urobilinogen 0.2 (0.2) mg/dL Ur Leukocyte Esterase Moderate A (Negative) U Hyaline Cast (Auto) NONE SEEN (0-2) /LPF Urine Microscopic RBC 3-5 (0-5) /HPF Urine Microscopic WBC 11-20 A (0-5) /HPF Ur Epithelial Cells Many A (None Seen) /HPF Urine Bacteria Many A (None Seen) /HPF Urine Culture Reflexed YES (NO) Influenza Type A Ag NEGATIVE (NEGATIVE) Influenza Type B Ag NEGATIVE (NEGATIVE) RSV (PCR) NEGATIVE (NEGATIVE) SARS-CoV-2 (PCR) NEGATIVE (NEGATIVE) 11/14/23 11/14/23 Range/Units 18:20 18:20 WBC 6.7 (4.0-10.5) x10^3/uL RBC 3.23 L (4.1-5.4) x10^6/uL Hgb 9.8 L (12.0-16.0) g/dL Hct 30.2 L (35-47) % MCV 93.5 (78-100) fL MCH 30.3 (26-32) pg MCHC 32.5 (32-36) g/dL RDW 12.8 (11.5-14.0) % Plt Count 233 (150-450) x10^3/uL MPV 10.5 (7.5-11.0) fL Gran % 68.9 H (36.0-66.0) % Immature Gran % (Auto) 0.3 (0.00-0.4) % Nucleat RBC Rel Count 0.0 (0.00-0.1) % Eos # (Auto) 0.09 (0-0.5) x10^3/uL Immature Gran # (Auto) 0.02 (0.00-0.03) x10^3u/L Absolute Lymphs (auto) 1.47 (1.0-4.6) x10^3/uL Absolute Monos (auto) 0.48 (0.0-1.3) x10^3/uL Absolute Nucleated RBC 0.00 (0.00-0.01) x10^3u/L Lymphocytes % 22.0 L (24.0-44.0) % Monocytes % 7.2 (0.0-12.0) % Eosinophils % 1.3 (0.00-5.0) % Basophils % 0.3 (0.0-0.4) % Absolute Granulocytes 4.61 (1.4-6.9) x10^3/uL Basophils # 0.02 (0-0.4) x10^3/uL Sodium 133 L (137-145) mmol/L Potassium 3.8 (3.5-5.1) mmol/L Chloride 103 (98-107) mmol/L Carbon Dioxide 24 (22-30) mmol/L Anion Gap 9.1 (5-15) MEQ/L BUN 9 (7-17) mg/dL Creatinine 0.38 L (0.52-1.04) mg/dL Estimated GFR 144.3 ML/MIN Glucose 81 (74-106) mg/dL Calcium 8.6 (8.4-10.2) mg/dL Magnesium 1.6 (1.6-2.3) mg/dL Total Bilirubin 0.30 (0.2-1.3) mg/dL AST 22 (14-36) U/L ALT 14 (0-35) U/L Alkaline Phosphatase 47 (38-126) U/L Troponin I (0.000-0.034) ng/mL Serum Total Protein 6.3 (6.3-8.2) g/dL Albumin 3.4 L (3.5-5.0) g/dL Urine Color (Yellow) Urine Appearance (Clear) Urine pH (4.6-8.0) Ur Specific [place] (1.005-1.030) Urine Protein (Negative) Urine Glucose (UA) (Negative) mg/dL Urine Ketones (Negative) Urine Blood (Negative) Urine Nitrite (Negative) Urine Bilirubin (Negative) Urine Urobilinogen (0.2) mg/dL Ur Leukocyte Esterase (Negative) U Hyaline Cast (Auto) (0-2) /LPF Urine Microscopic RBC (0-5) /HPF Urine Microscopic WBC (0-5) /HPF Ur Epithelial Cells (None Seen) /HPF Urine Bacteria (None Seen) /HPF Urine Culture Reflexed (NO) Influenza Type A Ag (NEGATIVE) Influenza Type B Ag (NEGATIVE) RSV (PCR) (NEGATIVE) SARS-CoV-2 (PCR) (NEGATIVE) - Progress Progress: re-examined Progress Note: 11/14/23 21:20 23 years old is evaluated for intermittent dizziness for quite some time. She has nonfocal neuroexam throughout stay in the ER. EKG is normal sinus rhythm with no acute ischemic changes. No acute electrolyte abnormalities. Orthostatics are negative. She is given fluids with minimal improvement and also minimal improvement with meclizine. She does not want to try any other medications. I have offered her CT head but she declined. Does have some element of UTI and started on Keflex. heart tones 140s. I do not know the exact cause of her symptoms but could be some element of anxiety contributing to her symptoms as well. With her symptoms going on for this long I do not think she has acute neuro event going on but needs further evaluation which I have recommended outpatient. I have even offered her observation admission but she does not want to stay at all. No difficulty ambulation while in the ER. Discussed signs symptoms of worsening needing return to ER which she seems understanding. Stable for discharge. Counseled pt/family regarding: lab results, diagnosis, need for follow-up Medical Desision Making - Diagnostic Testing Diagnostic test were ordered, analyzed, and reviewed by me: Yes - Risk of complications The pt has a mod risk of morbidity or mortality based on: Need for prescription drug management - Departure Departure Disposition: Home Clinical Impression: Intermittent lightheadedness, Urinary tract infection during Condition: Stable Critical Care Time: No Referrals: DOCTOR,NO FAMILY [Primary Care Provider] - Follow up/PCP as directed PARESH MORGAN DO [COURTESY STAFF] - Follow up/PCP as directed (saturday as scheduled ) Instructions: Dizziness, Nonvertigo, (DC) Additional Instructions: Plenty of fluids. Follow-up with your primary care/OB for reevaluation. Return to ER for worsening dizziness or if having any chest pain palpitations, shortness of breath, numbness tingling focal weakness etc. Prescriptions: Cephalexin Mh 500 mg [Keflex 500 mg] 500 mg PO TID #21 cap
[2023-11-14] MEDS ORDERED: KEFLEX 500 MG PO ONE (21:03)
[2023-11-14] MEDS ORDERED: KEFLEX 500 MG ONE (21:06)
[2023-11-14 21:50] VITALS: BP 94/63; PULSE 83; O2SAT 100
== END 2023-11-14 21:50 | disposition home or self-care (01) ==
LOC: ED 18:03
DX: O23.42 Unspecified infection of urinary tract in pregnancy, second trimester (principal); N39.0 Urinary tract infection, site not specified; Z3A.25 25 weeks gestation of pregnancy; R42 Dizziness and giddiness; R53.1 Weakness; Z28.310 Unvaccinated for COVID-19; Z72.0 Tobacco use; Z86.16 Personal history of COVID-19
CPT/HCPCS: 0241U; 36000; 36415; 80053; 81001; 83735; 84484; 85025; 87086; 93005; 99284; A9270-GY

== ENCOUNTER 2023-11-15 13:24 | Observation (INO) | payer OTHER ==
[2023-11-15] MEDS ORDERED: TYLENOL EXTRA STRENGTH 500 MG PO PRN (14:25)
[2023-11-15 14:43] LABS: Absolute Neutrophil Ct (ANC) 4.37 x10^3/uL (1.4-6.9); BASOPHIL % 0.3 % (0.0-0.4); Basophil (Absolute #) 0.02 x10^3/uL (0-0.4); Eosinophil (Absolute #) 0.06 x10^3/uL (0-0.5); Hematocrit 30.8 % (35-47); Hemoglobin 9.7 g/dL (12.0-16.0); IMMATURE GRAN # 0.02 x10^3u/L (0.00-0.03); IMMATURE GRAN % 0.3 % (0.00-0.4); Lymphocyte (Absolute #) 1.15 x10^3/uL (1.0-4.6); Mean Cell Volume 95.7 fL (78-100); Mean Corpuscular Hemoglobin 30.1 pg (26-32); Mean Corpuscular Hgb Concent. 31.5 g/dL (32-36); Mean Platelet Volume 9.5 fL (7.5-11.0); Monocyte (Absolute #) 0.42 x10^3/uL (0.0-1.3); Neutrophil % 72.4 % (36.0-66.0); Platelet Count 197 x10^3/uL (150-450); Red Blood Count 3.22 x10^6/uL (4.1-5.4); Red Cell Distribution Width 12.8 % (11.5-14.0)
[2023-11-15 14:45] VITALS: BP 115/62; PULSE 93; RESP 20; TEMP 98.1; O2SAT 100
[2023-11-15 14:56] LABS: ALBUMIN 3.2 g/dL (3.5-5.0); ANION GAP 5.8 MEQ/L (5-15); BILIRUBIN,TOTAL 0.3 mg/dL (0.2-1.3); Calcium 8.4 mg/dL (8.4-10.2); Creatinine 1 0.43 mg/dL (0.52-1.04); EST GLOMERULAR FILTRATION RATE 140.1 ML/MIN; Potassium 3.7 mmol/L (3.5-5.1); Total Protein 6.1 g/dL (6.3-8.2)
--- NOTE | 2023-11-15 15:37 | PCM.SSS ---
History of Present Illness - Chief Complaint Chief Complaint: IUP Constasnt Abd Pain History of Present Illness: is a 23 year old female at 25 wks EGA who come to the labor and delivery department complaining of abdominal pain, she reports she woke from a nap at 11am with pain all over, she describes a cramping pain in her abdomen with no obvious contractions. she has had no vomiting, no diarrhea or constipation. denies fever, no urinary symptoms, she was in the ER yesterday for dizziness, given antibiotic for possible UTI, she has felt poorly intermittently and been dizzy since she had covid in August which was during this . - Review of Systems Constitutional: No Fever, No Chills Cardiac: No Chest Pain, No Edema, No Syncope Abdominal/Gastrointestinal: Abdominal Pain, No Vomiting, No Diarrhea, No Constipation Genitourinary Symptoms: No Dysuria Skin: No Rash All Other Systems: Reviewed and Negative Medications & Allergies Home Medications: Home Medication List 168/Iron/Folic/Omega3 [One-A-Day -1 Softgel] 2 tab PO DAILY 08/28/23 [History Confirmed 11/15/23] Cephalexin Mh 500 mg [Keflex 500 mg] 500 mg PO TID #21 cap 11/14/23 [Rx Confirmed 11/15/23] Ferrous Sulfate 325 mg [Feosol 325 mg] 325 mg PO BID #60 tablet 11/15/23 [Rx] Allergies/Adverse Reactions: Allergies Allergy/AdvReac Type Severity Reaction Status Date / Time olives Allergy Severe Difficulty Uncoded 11/14/23 18:14 Breathing - Past Medical History Past Medical History: Yes Neurological History: Migraines ENT History: No Pertinent History Cardiac History: No Pertinent History Respiratory History: No Pertinent History Endocrine Medical History: No Pertinent History Musculoskelatal History: No Pertinent History GI Medical History: No Pertinent History History: No Pertinent History Pyscho-Social History: Other Reproductive Disorders: No Pertinent History Comment: OCD, subchorionic hematoma - Female History Are you now?: Yes - Past Surgical History Past Surgical History: No Neuro Surgical History: No Pertinent History Cardiac History: No Pertinent History Respiratory Surgery: No Pertinent History GI Surgical History: No Pertinent History Genitourinary Surgical Hx: No Pertinent History Musculskeletal Surgical Hx: No Pertinent History Female Surgical History: No Pertinent History - Social History Smoking Status: Current every day smoker How long have you smoked: 5 years Exposure to second hand smoke: No Alcohol: None Drug Use: none Significant Family History: no pertinent family hx - Physical Exam Vital Signs: Vital Signs - 24 hr Temp Pulse Resp BP Pulse Ox 11/15/23 14:04 98.1 F 93 H 20 115/62 100 11/15/23 13:58 98.1 F 93 H 20 100 General Appearance: no apparent distress Neurologic Exam: alert, oriented x 3 Respiratory Exam: normal breath sounds, lungs clear, No respiratory distress Cardiovascular Exam: regular rate/rhythm, normal heart sounds, normal peripheral pulses Gastrointestinal/Abdomen Exam: other (gravid uterus, nontender.), No guarding, No rebound Extremity Exam: normal inspection, normal range of motion, pelvis stable Skin Exam: normal color, warm, dry, No rash Results - Labs Lab/Micro Results: Lab Results-Last 24 Hours 11/15/23 11/15/23 Range/Units 14:35 14:35 WBC 6.0 (4.0-10.5) x10^3/uL RBC 3.22 L (4.1-5.4) x10^6/uL Hgb 9.7 L (12.0-16.0) g/dL Hct 30.8 L (35-47) % MCV 95.7 (78-100) fL MCH 30.1 (26-32) pg MCHC 31.5 L (32-36) g/dL RDW 12.8 (11.5-14.0) % Plt Count 197 (150-450) x10^3/uL MPV 9.5 (7.5-11.0) fL Gran % 72.4 H (36.0-66.0) % Immature Gran % (Auto) 0.3 (0.00-0.4) % Nucleat RBC Rel Count 0.0 (0.00-0.1) % Eos # (Auto) 0.06 (0-0.5) x10^3/uL Immature Gran # (Auto) 0.02 (0.00-0.03) x10^3u/L Absolute Lymphs (auto) 1.15 (1.0-4.6) x10^3/uL Absolute Monos (auto) 0.42 (0.0-1.3) x10^3/uL Absolute Nucleated RBC 0.00 (0.00-0.01) x10^3u/L Lymphocytes % 19.0 L (24.0-44.0) % Monocytes % 7.0 (0.0-12.0) % Eosinophils % 1.0 (0.00-5.0) % Basophils % 0.3 (0.0-0.4) % Absolute Granulocytes 4.37 (1.4-6.9) x10^3/uL Basophils # 0.02 (0-0.4) x10^3/uL Sodium 132 L (137-145) mmol/L Potassium 3.7 (3.5-5.1) mmol/L Chloride 105 (98-107) mmol/L Carbon Dioxide 24 (22-30) mmol/L Anion Gap 5.8 (5-15) MEQ/L BUN 8 (7-17) mg/dL Creatinine 0.43 L (0.52-1.04) mg/dL Estimated GFR 140.1 ML/MIN Glucose 100 (74-106) mg/dL Calcium 8.4 (8.4-10.2) mg/dL Total Bilirubin 0.30 (0.2-1.3) mg/dL AST 20 (14-36) U/L ALT 13 (0-35) U/L Alkaline Phosphatase 42 (38-126) U/L Serum Total Protein 6.1 L (6.3-8.2) g/dL Albumin 3.2 L (3.5-5.0) g/dL Amylase 120 H (30-110) U/L Lipase 78 (23-300) U/L - Radiology Impressions Radiology Exams & Impressions: Radiology Procedures Category Date Time Status GALLBLADDER [US] Stat Exams 11/15/23 14:28 Ordered OB LIMITED [US] Stat Exams 11/15/23 14:28 Ordered Assessment/Plan (1) Abdominal pain affecting Current Visit: Yes Status: Acute Code(s): O26.899 - OTH RELATED CONDITIONS, UNSPECIFIED TRIMESTER; R10.9 - UNSPECIFIED ABDOMINAL PAIN (2) Long COVID Current Visit: Yes Status: Acute Code(s): U09.9 - POST COVID-19 CONDITION, UNSPECIFIED (3) Anemia affecting Current Visit: Yes Status: Acute Assessment & Plan: some of her symptoms might be related to her anemia, will add iron supplement Code(s): O99.019 - ANEMIA COMPLICATING , UNSPECIFIED TRIMESTER Hospital Summary - Vitals & Intake/Output Vital Signs: Vital Signs Temperature 98.1 F 11/15/23 14:04 Pulse Rate 93 H 11/15/23 14:04 Respiratory Rate 20 11/15/23 14:04 Blood Pressure 115/62 11/15/23 14:04 O2 Sat by Pulse Oximetry 100 11/15/23 14:04 Intake & Output: Intake & Output 11/13/23 11/14/23 11/15/23 11/16/23 11:59 11:59 11:59 11:59 Weight 113 kg - Lab Result Diagrams: 11/15/23 14:35 11/15/23 14:35 Lab Results-Last 24 Hrs: Lab Results-Last 24 Hours 11/15/23 11/15/23 Range/Units 14:35 14:35 WBC 6.0 (4.0-10.5) x10^3/uL RBC 3.22 L (4.1-5.4) x10^6/uL Hgb 9.7 L (12.0-16.0) g/dL Hct 30.8 L (35-47) % MCV 95.7 (78-100) fL MCH 30.1 (26-32) pg MCHC 31.5 L (32-36) g/dL RDW 12.8 (11.5-14.0) % Plt Count 197 (150-450) x10^3/uL MPV 9.5 (7.5-11.0) fL Gran % 72.4 H (36.0-66.0) % Immature Gran % (Auto) 0.3 (0.00-0.4) % Nucleat RBC Rel Count 0.0 (0.00-0.1) % Eos # (Auto) 0.06 (0-0.5) x10^3/uL Immature Gran # (Auto) 0.02 (0.00-0.03) x10^3u/L Absolute Lymphs (auto) 1.15 (1.0-4.6) x10^3/uL Absolute Monos (auto) 0.42 (0.0-1.3) x10^3/uL Absolute Nucleated RBC 0.00 (0.00-0.01) x10^3u/L Lymphocytes % 19.0 L (24.0-44.0) % Monocytes % 7.0 (0.0-12.0) % Eosinophils % 1.0 (0.00-5.0) % Basophils % 0.3 (0.0-0.4) % Absolute Granulocytes 4.37 (1.4-6.9) x10^3/uL Basophils # 0.02 (0-0.4) x10^3/uL Sodium 132 L (137-145) mmol/L Potassium 3.7 (3.5-5.1) mmol/L Chloride 105 (98-107) mmol/L Carbon Dioxide 24 (22-30) mmol/L Anion Gap 5.8 (5-15) MEQ/L BUN 8 (7-17) mg/dL Creatinine 0.43 L (0.52-1.04) mg/dL Estimated GFR 140.1 ML/MIN Glucose 100 (74-106) mg/dL Calcium 8.4 (8.4-10.2) mg/dL Total Bilirubin 0.30 (0.2-1.3) mg/dL AST 20 (14-36) U/L ALT 13 (0-35) U/L Alkaline Phosphatase 42 (38-126) U/L Serum Total Protein 6.1 L (6.3-8.2) g/dL Albumin 3.2 L (3.5-5.0) g/dL Amylase 120 H (30-110) U/L Lipase 78 (23-300) U/L - Radiology Exams Ordered Rad Exams-Entire Visit: Radiology Procedures Category Date Time Status GALLBLADDER [US] Stat Exams 11/15/23 14:28 Ordered OB LIMITED [US] Stat Exams 11/15/23 14:28 Ordered - Discharge Disposition: Home, Self-Care Condition: Stable Prescriptions: New Ferrous Sulfate 325 mg [Feosol 325 mg] 325 mg PO BID #60 tablet Continue 168/Iron/Folic/Omega3 [One-A-Day -1 Softgel] 2 tab PO DAILY Cephalexin Mh 500 mg [Keflex 500 mg] 500 mg PO TID #21 cap Additional Instructions: push water intake and rest, no work until Saturday. return for severe pain, leakage of fluid or vaginal bleeding or any other new concerns. start iron twice daily, if you experience constipation you can take over the counter docusate 100mg twice daily with the iron. [facility].
--- NOTE | 2023-11-15 15:52 | XRAY ---
Indication: Abdomen pain. well-being. Limited OB ultrasound demonstrates single intrauterine in breech presentation with heart rate 148 BPM. Anterior placenta without abnormal retroplacental fluid. Cervical length is 5.8 cm.
[2023-11-15 15:54] LABS: Appearance Turbid (Clear); Bacteria Many /HPF (None Seen); Bilirubin Negative (Negative); Blood Negative (Negative); Epithelial Cells Many /HPF (None Seen); Glucose, Urine Negative (Negative); Ketones Negative (Negative); Leukocyte Esterase Large (Negative); Nitrite Negative (Negative); Ph 7.5 (4.6-8.0); Protein,Urine Dip Negative (Negative); RBC 0-2 /HPF (0-5); Urobilinogen 0.2 mg/dL (0.2); WBC 51-100 /HPF (0-5)
[2023-11-15 15:55] LABS: ADD URINE CULTURE? YES (NO)
--- NOTE | 2023-11-15 15:56 | XRAY ---
Indication: Abdomen pain. Two-dimensional gallbladder sonogram performed. Comparison: None Visualized gallbladder is partially contracted without gallstones, abnormal wall thickening, or pericholecystic fluid. Common bile duct measures 3.1 mm. No intrahepatic biliary distention or free fluid. Remaining visualized liver and pancreas are sonographically unremarkable. Right kidney measures 10.3 x 4.9 x 5.4 cm and demonstrates mild hydronephrosis presumed related to . Impression: Contracted gallbladder without cholelithiasis/cholecystitis. Mild hydronephrotic right kidney presumed related to .
== END 2023-11-15 16:45 | disposition home or self-care (01) ==
LOC: MED SURG 13:24
PROVIDERS: ADMIT Family Medicine; ATTEND Family Medicine
DX: Z34.82 Encounter for supervision of other normal pregnancy, second trimester (principal); Z3A.25 25 weeks gestation of pregnancy
CPT/HCPCS: 36415; 76705; 76815; 80053; 81001; 82150; 83690; 85025; 87086; 99213; G0378; G0379

== ENCOUNTER 2023-12-03 12:01 | Observation (INO) | payer OTHER ==
[2023-12-03 13:29] VITALS: PULSE 88; RESP 18; TEMP 98; O2SAT 98
[2023-12-03 13:32] VITALS: BP 106/57
[2023-12-03 13:33] LABS: Appearance Clear (Clear); Bacteria None Seen /HPF (None Seen); Bilirubin Negative (Negative); Blood Negative (Negative); Epithelial Cells Moderate /HPF (None Seen); Glucose, Urine Negative (Negative); Hyaline Casts NONE SEEN /LPF (0-2); Ketones Negative (Negative); Leukocyte Esterase Negative (Negative); Nitrite Negative (Negative); Ph 7.5 (4.6-8.0); Protein,Urine Dip Negative (Negative); RBC 0-2 /HPF (0-5); Urobilinogen 0.2 mg/dL (0.2); WBC 0-2 /HPF (0-5)
[2023-12-03 13:50] LABS: ADD URINE CULTURE? NO (NO)
--- NOTE | 2023-12-03 14:11 | PCM.NOTE ---
Date and Time: 12/03/23 1403 Subjective Assessment: 23yo at 27 weeks presents for decreased movement. Patient denies feeling conractions. She had not felt movement this morning and was directed to come to Labor and Delivery. - Review of Systems Constitutional: No Symptoms Eyes: No Symptoms Ears, Nose, & Throat: No Symptoms Cardiac: No Chest Pain, No Edema, No Syncope Abdominal/Gastrointestinal: No Symptoms Genitourinary Symptoms: No Symptoms Musculoskeletal: No Back Pain, No Neck Pain Skin: No Rash Neurological: No Dizziness, No Focal Weakness, No Sensory Changes Psychological: No Symptoms Endocrine: No Symptoms Hematologic/Lymphatic: No Symptoms Immunological/Allergic: No Symptoms OBJECTIVE DATA Vital Signs: Vital Signs - 24 hr Temp Pulse Resp BP Pulse Ox 12/03/23 13:10 98.0 F 88 18 98 12/03/23 12:01 98.0 F 88 18 106/57 98 Intake and Output: Intake & Output 12/01/23 12/02/23 12/03/23 12/04/23 11:59 11:59 11:59 11:59 Intake Total 500 Balance 500 Weight 59.24 kg Lab Results: Lab Results-Last 24 Hours 12/03/23 Range/Units 13:19 Urine Color Yellow (Yellow) Urine Appearance Clear (Clear) Urine pH 7.5 (4.6-8.0) Ur Specific [place] 1.010 (1.005-1.030) Urine Protein Negative (Negative) Urine Glucose (UA) Negative (Negative) mg/dL Urine Ketones Negative (Negative) Urine Blood Negative (Negative) Urine Nitrite Negative (Negative) Urine Bilirubin Negative (Negative) Urine Urobilinogen 0.2 (0.2) mg/dL Ur Leukocyte Esterase Negative (Negative) U Hyaline Cast (Auto) NONE SEEN (0-2) /LPF Urine Microscopic RBC 0-2 (0-5) /HPF Urine Microscopic WBC 0-2 (0-5) /HPF Ur Epithelial Cells Moderate A (None Seen) /HPF Urine Bacteria None Seen (None Seen) /HPF Urine Culture Reflexed NO (NO) Multi-Disciplinary Progress Notes: Patient presented to Labor and Delivery due to decreased movement. Patient denies feeling cramping or tightening. Patient called office and had not felt movement all morning. Patient placed on monitor and had a baseline of 145 with moderate variability. Patient had what appeared to be irritability initially, although she denied feeling any tightening or pain or cramping. Urine was performed and no signs of infection with SG of 1.010. Iup 27 02/01 with active fetus on monitor. No labor. P- Discharge to home. Follow-up as scheduled. Call for any concerns.
== END 2023-12-03 14:10 | disposition home or self-care (01) ==
LOC: OB 12:01
PROVIDERS: ADMIT Obstetrics & Gynecology; ATTEND Obstetrics & Gynecology
DX: Z34.82 Encounter for supervision of other normal pregnancy, second trimester (principal); Z3A.27 27 weeks gestation of pregnancy
CPT/HCPCS: 81001; 99213; G0378; G0379